=== PATIENT | female | born 1940 | race Caucasian/White ===

== ENCOUNTER 2023-08-02 18:08 | Inpatient (IN) ==
--- NOTE | 2023-08-02 18:24 | ED Triage Note ---
Date of Service August 02, 2023 Provider in Triage Author: Fern Tran History of Present Illness This patient was briefly evaluated while in triage. An abbreviated physical exam was performed. This patient is a 83-year-old Female who presents to the ED for evaluation of multiple falls over the past couple days. She states that they are all mechanical falls. Having pain and swelling to the whole right arm, right knee, neck, back, and head. Physical Exam GENERAL: Non-toxic and in no acute distress. HEENT: Pupils equal. No obvious scleral icterus. HEART: Regular rate and rhythm. LUNGS: Clear to auscultation. No accessory muscle use. CHEST: Tender to palpation along the right-sided ribs in the lower anterior aspect as well as over the lateral aspect. No fracture crepitus or flail chest. ABDOMEN: Soft, tender to palpation in the right upper quadrant. NEURO: Alert and oriented. No obvious neurological deficits on quick neuro exam. MUSCULOSKELETAL: The patient has significant bruising and edema to the entire right upper extremity. She is tender to palpation diffusely over the right upper extremity. There is also edema, ecchymosis, and tenderness to palpation over the anterior aspect of the right knee. She is tender to palpation over the cervical spine as well. Initial orders for labs and / or imaging were placed and patient was placed in the waiting area until a bed is available. Please see further documentation for the full ED course.
[2023-08-02 18:58] LABS: Basophils # (auto) 0.07 K/uL (0.00-0.20); Basophils % (auto) 0.9 %; Eosinophils # (auto) 0.08 K/uL (0.00-0.50); Eosinophils % (auto) 1.1 %; Hematocrit (blood only) 31.6 % (37.0-47.0); Hemoglobin 10.8 g/dl (12.0-16.0); Immature Granulocytes # (auto) 0.05 K/uL (0.01-0.20); Immature Granulocytes % (auto) 0.7 %; Lymphocytes # (auto) 0.83 K/uL (1.20-3.40); Mean Corpuscular Hemoglobin 30.8 pg (25.0-34.0); Mean Corpuscular Hgb Conc 34.2 g/dL (32.0-36.0); Mean Platelet Volume 10.9 fL (9.4-12.4); Monocytes # (auto) 1.02 K/uL (0.11-0.59); Monocytes % (auto) 13.5 %; Neutrophils # (auto) 5.52 K/uL (1.40-6.50); Neutrophils % (auto) 72.8 %; Platelet Count 271 K/uL (130-400); RDW Coefficient of Variation 12.9 % (11.5-14.5); RDW Standard Deviation 42.5 fL (36.4-46.3); Red Blood Count 3.51 M/uL (4.20-5.40); White Blood Count 7.57 K/ul (4.8-10.8)
[2023-08-02 19:20] LABS: Alanine Aminotransferase 12 U/L (7-52); Albumin Globulin Ratio 1.5 (0.9-2); Alkaline Phosphatase 66 U/L (34-104); Anion Gap 15 (3-11); Aspartate Aminotransferase 15 U/L (13-39); BUN Creatinine Ratio 24.4 (10-20); Bilirubin,Total 0.7 mg/dl (0.2-1.0); Blood Urea Nitrogen 20 mg/dl (6-23); Calcium 8.9 mg/dl (8.6-10.3); Carbon Dioxide 19 mmol/L (21-32); Chloride 98 mmol/L (98-107); Est GFR (African American) 75.6 ml/min; Est GFR (Non-African American) 65.3 ml/min; Globulin 2.7 gm/dl (2.5-4.0); Glucose 547 mg/dl (70-99(Fasting)); Magnesium 1.3 mg/dl (1.7-2.4); Potassium 4.2 mmol/L (3.5-5.1); Sodium 132 mmol/L (136-145); Total Protein 6.7 gm/dl (6.0-8.3)
[2023-08-02 19:23] LABS: Troponin I High Sensitivity 5.6 pg/ml (0-14)
[2023-08-02] MEDS: ACETAMINOPHEN 1,000 MG/100 ML VIAL IV STA (19:25)
[2023-08-02 19:26] LABS: Partial Thromboplastin Time 26 Seconds (21-31)
[2023-08-02] MEDS: SODIUM CHLORIDE 0.9% 500 ML IV ONE (19:26)
--- NOTE | 2023-08-02 19:47 | XRay Report ---
SINGLE VIEW CHEST CLINICAL HISTORY: Fall. FINDINGS: An AP, portable, supine chest radiograph is obtained. No prior studies are available for co mparison at the time of dictation. The examination is degraded by portable technique and apical lordo tic positioning. The patient is status post midline sternotomy. The heart is mildly enlarged noting a therosclerotic calcification of the thoracic aorta. The pulmonary vasculature is noncongested. Nonspe cific interstitial thickening is likely chronic. There is mild bibasilar scarring/atelectasis. The anneliese ngs and pleural spaces are otherwise clear. No pneumothorax is seen. The skeletal structures are oste openic. There is impacted and comminuted fracture to the right humeral head and neck. Arthritic butterfield e is seen in the shoulders. IMPRESSION: 1. Mild cardiomegaly without radiographic evidence of congestive failure. 2. There is no airspace consolidation or large pleural effusion. 3. Comminuted fracture of the right humeral head and neck.. ACT 112: Negative or not required by law. Electronically signed by: Herb Mehta M.D. 08/02/2023 7:45 PM
[2023-08-02] MEDS: OPTIRAY 320 100ml IV ONE (19:54)
--- NOTE | 2023-08-02 20:24 | CT Scan Report ---
Exam(s): CT HEAD Without Contrast EXAM: CT Head Without Intravenous Contrast CLINICAL HISTORY: Reason for exam: Trauma. TECHNIQUE: Axial computed tomography images of the head/brain without intravenous contrast. CTDI is 34.77 mGy and DLP is 624.41 mGy-cm. Automated exposure control was utilized for the study. A dose lowering technique was utilized adhering to the principles of ALARA. COMPARISON: No relevant prior studies available. FINDINGS: Brain: Mild periventricular white matter changes, likely related to micro angiopathy. No hemorrhage. Ventricles: Unremarkable. No ventriculomegaly. Bones/joints: Unremarkable. No acute fracture. Soft tissues: Unremarkable. Sinuses: Unremarkable as visualized. No acute sinusitis. Mastoid air cells: Unremarkable as visualized. No mastoid effusion. IMPRESSION: No acute findings in the head/brain. Electronically signed by: Joby Quispe M.D. 08/02/23 20:22 PM
--- NOTE | 2023-08-02 20:33 | CT Scan Report ---
Exam(s): CT C SPINE EXAM: CT Cervical Spine Without Intravenous Contrast CLINICAL HISTORY: Reason for exam: Trauma. TECHNIQUE: Axial computed tomography images of the cervical spine without intravenous contrast. CTDI is 26.19 mGy and DLP is 468.38 mGy-cm. Automated exposure control was utilized for the study. A dose lowering technique was utilized adhering to the principles of ALARA. COMPARISON: No relevant prior studies available. FINDINGS: Vertebrae: Grade 1 anterolisthesis of C2 relative to C3 and C3 relative to C4. Otherwise alignment is maintained with preservation of vertebral body heights. There are severe erosive changes at the base of the odontoid with only the anterior cortex remaining intact. No definite fracture is present. There is soft tissue swelling anterior to the base of the dens which is favored to be the cause of the erosive changes. Discs/spinal canal/neural foramina: Severe degenerative joint disease of the C4-5, C5-6, and C6-7 levels without significant bony spinal canal stenosis at any cervical level. Soft tissues: See above. IMPRESSION: No acute findings in the cervical spine. Electronically signed by: Joby Quispe M.D. 08/02/23 20:32 PM
--- NOTE | 2023-08-02 20:40 | CT Scan Report ---
Exam(s): CT CHEST With Contrast IV Amt: 93 ml optiray 320 EXAM: CT Chest With Intravenous Contrast CLINICAL HISTORY: Reason for exam: fall. TECHNIQUE: Axial computed tomography images of the chest with intravenous contrast. CTDI is 20.73 mGy and DLP is 907.8 mGy-cm. Automated exposure control was utilized for the study. A dose lowering technique was utilized adhering to the principles of ALARA. CONTRAST: Patient received 93 ml optiray 320 of IV contrast COMPARISON: No relevant prior studies available. FINDINGS: Lungs: Unremarkable. No mass. No consolidation. Pleural space: Unremarkable. No pneumothorax. No significant effusion. Heart: Unremarkable. No cardiomegaly. No significant pericardial effusion. No significant coronary artery calcifications. Bones/joints: Nondisplaced right sixth lateral rib fracture. Right humeral neck fracture. Large glenohumeral synovial fluid collection. No dislocation. Soft tissues: Unremarkable. Vasculature: Unremarkable. No thoracic aortic aneurysm. Lymph nodes: Unremarkable. No enlarged lymph nodes. IMPRESSION: 1. Nondisplaced right sixth lateral rib fracture. 2. Right humeral neck fracture. Electronically signed by: Joby Quispe M.D. 08/02/23 20:38 PM
--- NOTE | 2023-08-02 20:46 | CT Scan Report ---
Exam(s): CT ABDOMEN + PELVIS With Contrast IV Amt: 93ml optiray 320 EXAM: CT Abdomen and Pelvis With Intravenous Contrast CLINICAL HISTORY: Reason for exam: Trauma. TECHNIQUE: Axial computed tomography images of the abdomen and pelvis with intravenous contrast. CTDI is 16.37 mGy and DLP is 471.37 mGy-cm. Automated exposure control was utilized for the study. A dose lowering technique was utilized adhering to the principles of ALARA. CONTRAST: Patient received 93ml optiray 320 of IV contrast COMPARISON: No relevant prior studies available. FINDINGS: Lung bases: Unremarkable. No mass. No consolidation. ABDOMEN: Liver: Unremarkable. No mass. Gallbladder and bile ducts: See below. Pancreas: 2.6 mm calcific density in the head of the pancreas favored to be within the distal common bile duct without biliary dilatation. Spleen: Unremarkable. No splenomegaly. Adrenals: Unremarkable. No mass. Kidneys and ureters: 1.1 cm simple cyst arising off the mid left kidney. No further workup is required. No hydronephrosis. Stomach and bowel: Severe sigmoid diverticulosis without evidence of diverticulitis. No obstruction. PELVIS: Appendix: Appendix is not identified but there are no secondary signs of acute appendicitis. Bladder: Unremarkable. No mass. Reproductive: Unremarkable as visualized. ABDOMEN and PELVIS: Intraperitoneal space: Unremarkable. No free air. No significant fluid collection. Bones/joints: Severe L1 compression fracture with retropulsion is favored to be chronic. No dislocation. Soft tissues: Small periumbilical hernia. Vasculature: Unremarkable. No abdominal aortic aneurysm. Lymph nodes: Unremarkable. No enlarged lymph nodes. IMPRESSION: No acute abdominal or pelvic injury. 2.6 mm calcific density in the head of the pancreas favored to be within the distal common bile duct without biliary dilatation. Electronically signed by: Joby Quispe M.D. 08/02/23 20:45 PM
[2023-08-02] MEDS ORDERED: GLUCAGON FOR INJ 1 MG VIAL SQ PRN (20:50)
[2023-08-02] MEDS ORDERED: GLUCOSE 10 TAB/TUBE PO PRN (20:50)
[2023-08-02] MEDS ORDERED: GLUCOSE 40% GEL 15 GM TUBE PO PRN (20:50)
[2023-08-02] MEDS ORDERED: CARBOHYDRATES FOR HYPOGLYCEMIA PO PRN (20:50)
[2023-08-02] MEDS ORDERED: DEXTROSE 50% 50 ML SYRINGE IV PRN (20:50)
[2023-08-02] MEDS ORDERED: INSULIN REGULAR 250 UNITS in SODIUM CHLORIDE 0.9% 247.5 ML IV SCH (21:00)
[2023-08-02] MEDS: INSULIN ASPART PER UNIT CHARGE SC SCH (21:19)
[2023-08-02] MEDS ORDERED: PHARMACY GLYCEMIC MGMT CONSULT PRN (21:27)
[2023-08-02] MEDS ORDERED: PLASMA-LYTE A 1,000 ML IV SCH (21:30)
[2023-08-02] MEDS ORDERED: NALOXONE HCL 0.4 MG/1 ML VIAL/CARP IV PRN (21:30)
[2023-08-02 21:33] LABS: Allen Test Pos (Pos); Base Excess ABG -2.1 mEq/L (-9-1.8); HCO3 ABG 20 mmol/L (19-24); Oxygen Saturation ABG 98.5 % (90-95); PCO2 ABG 27 mmHg (35-46); PO2 ABG 129 mmHg (80-95); pH ABG 7.48 (7.35-7.45)
[2023-08-02 21:48] LABS: Albumin Level 3.7 gm/dl (3.4-5.0); Bilirubin,Total 0.7 mg/dl (0.2-1.0); Calcium 8.5 mg/dl (8.6-10.3); Magnesium 1.3 mg/dl (1.7-2.4); Potassium 3.7 mmol/L (3.5-5.1)
[2023-08-02 21:52] LABS: Appearance Urine Clear (Clear); Bilirubin Urine Negative (Negative); Blood Urine Negative (Negative); Color Urine Yellow; Glucose Urine UA 3+ (Negative); Ketones Urine Trace (Negative); Leukocyte Esterase Urine Negative (Negative); Nitrite Urine Negative (Negative); Protein Urine Negative (Negative); Specific Gravity Urine 1.034 (1.000-1.030); Urobilinogen Urine Negative (Negative); pH Urine 5.5 (4.5-7.5)
--- NOTE | 2023-08-02 21:52 | History & Physical Report ---
Date of Service August 02, 2023 Assessment & Plan (1) Fracture of humerus, right, closed: (2) Closed rib fracture: (3) DKA (diabetic ketoacidosis): (4) Uncontrolled type 2 diabetes mellitus with hyperglycemia: (5) CAD (coronary artery disease): (6) S/P CABG x 3: (7) Idiopathic polyneuropathy: (8) Diabetes mellitus type 2, controlled, with complications: (9) Essential hypertension with goal blood pressure less than 130/80: Plan Closed right humeral neck fracture- Status post mechanical fall N.p.o. after midnight Consult orthopedic surgery Pain management with Tylenol and morphine IV as needed DKA/diabetes mellitus- Insulin drip per protocol begun in the ED and will be continued Every 4 hours laboratories: BMP, magnesium, venous blood gas LR 150 MLS per hour Oral potassium to be supplemented, due to poor IV access and concerns regarding trauma to the veins Hold repaglinide Check hemoglobin A1c Will hopefully alleviate to convert to usual glargine CAD/hypertensionhistory of CABG- Continue amlodipine, atenolol, isosorbide mononitrate Temporarily hold aspirin for possible procedure Follow routine laboratories History of Present Illness Chief Complaint: The patient is brought to the emergency department after a ground-level fall, where she reports she was on some steps 2 days ago fell and landed on her right side, and developed worsening right arm and shoulder pain and swelling. Primary Care Provider: Luther Funk, III, PREETHI The patient is a 83-year-old female with medical history including diabetes dewayne itus type II dyslipidemia, CAD, bilateral carotid artery stenosis, status post CABG x 3, idiopathic polyneuropathy hypertension and moderate mitral regurgitation. She presents to the emergency department with worsening right shoulder and arm pain and swelling, after landing on her right side after a fall on steps 2 days ago. X-rays in the emergency department revealed a right humeral neck fracture, a right sixth lateral rib fracture, and laboratory workup revealed DKA with a glucose of 547 and anion gap of 15 Allergies Allergy/AdvReac Type Severity Reaction Status Date / Time canagliflozin [From Invokana] AdvReac Severe Vaginal Unverified 07/11/23 14:45 fungal infection alendronate sodium AdvReac Unknown Night time Unverified 07/11/23 14:45 [From Fosamax] muscle cramps epinephrine AdvReac Unknown Unverified 07/11/23 14:45 exenatide AdvReac Unknown Unverified 07/11/23 14:45 insulin detemir AdvReac Unknown Unverified 07/11/23 14:45 latex AdvReac Unknown Edema Unverified 07/11/23 14:45 rosuvastatin [From Crestor] AdvReac Unknown Muscle pain Unverified 07/11/23 14:45 silicone AdvReac Unknown Unverified 07/11/23 14:45 sitagliptin [From Januvia] AdvReac Unknown Muscle pain Unverified 07/11/23 14:45 Sulfa (Sulfonamide AdvReac Unknown Hives Unverified 07/11/23 14:45 Antibiotics) vecuronium AdvReac Unknown Unverified 07/11/23 14:45 Home Medications Medication Instructions Recorded Confirmed Type atenolol 25 mg tablet 25 mg PO DAILY 04/15/21 08/02/23 History isosorbide mononitrate 30 mg 30 mg PO DAILY 04/15/21 08/02/23 History tablet,extended release 24 hr metformin 1,000 mg tablet 1,000 mg PO BID 04/15/21 08/02/23 History lancets 33 gauge (OneTouch Delica #100 ea 10/06/21 08/02/23 History Plus Lancet) atorvastatin 40 mg tablet 40 mg PO DAILY #90 tabs 02/15/22 08/02/23 Rx blood sugar diagnostic (OneTouch #10 ea 04/08/22 08/02/23 History Verio test strips) cyclosporine 0.05 % eye drops in a 1 drp ophthalmic (eye) Q12H PRN 04/08/22 08/02/23 History dropperette (Restasis) Dry Eyes mheqrzsa-qsucmnt-nbxw-lutein tablet 1 tab PO DAILY 04/08/22 08/02/23 History pen needle, diabetic 31 gauge x #100 ea 09/28/22 08/02/23 Rx 5/16" (BD Ultra-Fine Short Pen Needle) aspirin 81 mg tablet,delayed 162 mg PO DAILY 12/29/22 08/02/23 History release nitroglycerin 0.4 mg sublingual 0.4 mg sublingual Q5M PRN chest 12/29/22 08/02/23 Rx tablet pain #25 tabs OneTouch Verio Flex meter #1 ea 05/19/23 08/02/23 Rx (blood-glucose meter) duloxetine 30 mg capsule,delayed 30 mg PO DAILY #90 caps 07/24/23 08/02/23 Rx release amlodipine 5 mg tablet 5 mg PO DAILY 08/02/23 08/02/23 History aspirin 81 mg tablet,delayed 81 mg PO DAILY 08/02/23 08/02/23 History release insulin glargine 100 unit/mL (3 12 unit subcut QPM 08/02/23 08/02/23 History mL) subcutaneous pen (Lantus Solostar U-100 Insulin) oxybutynin chloride 5 mg tablet 5 mg PO Q OTHER DAY 08/02/23 08/02/23 History repaglinide 1 mg tablet 1 mg PO DAILY PRN ud 08/02/23 08/02/23 History Past Med/Surg History Problem List (Updated 08/03/23 @ 01:49 by Johnny Mackenzie MD) Fracture of humerus, right, closed Closed rib fracture (Acute) Fracture, humerus (Acute) DKA (diabetic ketoacidosis) (Acute) Moderate mitral regurgitation Uncontrolled type 2 diabetes mellitus with hyperglycemia (Chronic) Osteoporosis Dyslipidemia, goal LDL below 70 CAD (coronary artery disease) Bilateral carotid artery stenosis S/P CABG x 3 Idiopathic polyneuropathy Mammogram declined Diabetes mellitus type 2, controlled, with complications Essential hypertension with goal blood pressure less than 130/80 Medical History Thrombocytosis Type 2 diabetes mellitus with diabetic neuropathy, without long-term current use of insulin 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 Spinal stenosis of lumbar region Hypothyroidism Primary osteoarthritis of left hip DJD (degenerative joint disease) of thoracic spine CAROL (obstructive sleep apnea) Insomnia HTN, goal below 150/90 Age-related osteoporosis without current pathological fracture Osteoarthritis of hip Surgical History S/P hip replacement Right S/P tonsillectomy and adenoidectomy S/P appendectomy S/P colonoscopy Status post left hip replacement Family History Sister Cancer Ovarian cancer Mother Neurological disorder Denies family history of Prostate cancer Myocardial infarction Breast cancer Colorectal cancer Social History Smoking Status: Former smoker Tobacco Type: Cigarettes Age Started Using Tobacco: 24; Age Quit Using Tobacco: 63; packs per day: 0.33; Second Hand Exposure: No; Do You Dip or Chew Tobacco: No; Tobacco Cessation Education Requested by Patient: No Hx Alcohol Use: Yes Alcohol type: wine and hard liquor Alcohol Intake Frequency: 4 or More x per/Week Alcohol Intake Frequency Comment: wine at lunch and dinner time, Cogn[place] in coffee in mornings Hx Substance Use: No Preferred Language: Ivorian Communication Ability: Effective Visual Impairment: Limited Hearing Ability: Normal Security Operations Specialist Required: No Beliefs That Will Affect Care: None marital status: Current Living Situation: Spouse current occupational status: retired How many Children do You have: 5 Other Information That Helps Us Care for You: No Feels Safe at Home: Yes Safety Concerns: Feels Safe At This Time Childhood Exposure to Second-Hand Smoke: No Diet: other Diet Comment: Mediterranean caffeine: Yes during the past year weight has: remained stable Dental Care, Regularly: Yes Physical Activity Frequency: Daily Seatbelt Use: always Sunscreen Use: Yes Assistive Devices: Denture - Upper and Denture - Lower Review of Systems Review of Systems: The patient denies chest pain, palpitations, shortness of breath, dyspnea on exertion, cough, lower extremity swelling, sore throat, fevers, chills, sweats, weight change, fatigue, nausea, vomiting, diarrhea , constipation, abdominal pain, pelvic pain, blood in urine or stool, dysuria, urinary frequency or urgency, lightheadedness, dizziness, headache, memory loss, loss of consciousness, imbalance, focal or generalized weakness, numbness or tingling in legs, generalized arthralgias or myalgias, back or neck pain, or night sweats. The review of systems is otherwise negative other than for that already noted above, and at least 10 systems have been reviewed. Physical Exam Physical Exam: The patient is awake, alert and oriented 3, well developed and well nourished, normocephalic and atraumatic, lying in bed and in no acute distress. HEENT--PERRL, EOMI, mucous membranes and oropharynx dry. Neck--supple. No JVD. No bruits. Thyroid normal, trachea midline, no adenopathy. Heart--normal S1 and S2. No murmurs, rubs or gallops. Lungs--clear bilaterally, no respiratory distress, no accessory muscle use. Abdomen--normal bowel sounds and soft. Nontender. Nondistended, no hernias or masses, no organomegaly. Extremities-- No edema. Dermatologic-large areas of ecchymoses right arm and shoulder, and right sided rib cage. Neurologic--cranial nerves II through XII grossly intact. Rheumatologic--limited exam due to right shoulder, arm and rib cage pain Psychiatric--normal affect. Results & Data Results & Data Vital Signs (Past 12 Hours) Vital Signs Temp Pulse Pulse Resp BP BP Pulse Ox 08/02/23 19:44 70 24 185/86 H 100 08/02/23 19:42 70 24 100 08/02/23 19:24 69 08/02/23 18:15 36.8 C 90 28 H 199/81 H 97 O2 Del Method 08/02/23 19:44 Room Air 08/02/23 19:42 Room Air 08/02/23 19:24 08/02/23 18:15 Room Air Laboratory Results Laboratory Results WBC 6.89 K/ul (4.8-10.8) 08/02/23 21:13 RBC 3.46 M/uL (4.20-5.40) L 08/02/23 21:13 Hgb 10.6 g/dl (12.0-16.0) L 08/02/23 21:13 Hct 30.5 % (37.0-47.0) L 08/02/23 21:13 MCV 88.2 fL (80.0-100.0) 08/02/23 21:13 MCH 30.6 pg (25.0-34.0) 08/02/23 21:13 MCHC 34.8 g/dL (32.0-36.0) 08/02/23 21:13 RDW Std Deviation 40.9 fL (36.4-46.3) 08/02/23 21:13 RDW Coeff of Emery 12.7 % (11.5-14.5) 08/02/23 21:13 Plt Count 249 K/uL (130-400) 08/02/23 21:13 MPV 11.2 fL (9.4-12.4) 08/02/23 21:13 Immature Gran % (Auto) 0.7 % 08/02/23 21:13 Neut % (Auto) 74.3 % 08/02/23 21:13 Lymph % (Auto) 10.3 % 08/02/23 21:13 [place] % (Auto) 12.9 % 08/02/23 21:13 Eos % (Auto) 0.6 % 08/02/23 21:13 Baso % (Auto) 1.2 % 08/02/23 21:13 Neut # (Auto) 5.12 K/uL (1.40-6.50) 08/02/23 21:13 Lymph # (Auto) 0.71 K/uL (1.20-3.40) L 08/02/23 21:13 [place] # (Auto) 0.89 K/uL (0.11-0.59) H 08/02/23 21:13 Eos # (Auto) 0.04 K/uL (0.00-0.50) 08/02/23 21:13 Baso # (Auto) 0.08 K/uL (0.00-0.20) 08/02/23 21:13 Immature Gran # (Auto) 0.05 K/uL (0.01-0.20) 08/02/23 21:13 PT 11.0 Seconds (9.0-12.0) 08/02/23 18:31 INR 1.0 (0.9-1.1) 08/02/23 18:31 APTT 26 Seconds (21-31) 08/02/23 18:31 PTT Ratio 1.0 08/02/23 18:31 ABG pH 7.48 (7.35-7.45) H 08/02/23 21:13 ABG pCO2 27 mmHg (35-46) L 08/02/23 21:13 ABG pO2 129 mmHg (80-95) H 08/02/23 21:13 ABG HCO3 20 mmol/L (19-24) 08/02/23 21:13 ABG O2 Saturation 98.5 % (90-95) H 08/02/23 21:13 ABG Base Excess -2.1 mEq/L (-9-1.8) 08/02/23 21:13 Anders Test Pos (Pos) 08/02/23 21:13 Oxygen Given 2L 08/02/23 21:13 Sodium 133 mmol/L (136-145) L 08/02/23 21:13 Potassium 3.7 mmol/L (3.5-5.1) 08/02/23 21:13 Chloride 100 mmol/L (98-107) 08/02/23 21:13 Carbon Dioxide 20 mmol/L (21-32) L 08/02/23 21:13 Anion Gap 13 (3-11) H 08/02/23 21:13 BUN 18 mg/dl (6-23) 08/02/23 21:13 Creatinine 0.70 mg/dl (0.6-1.2) 08/02/23 21:13 Est Cr Clr Drug Dosing 45.5 ml/min 08/02/23 21:13 Est GFR ( Amer) 91.6 ml/min 08/02/23 21:13 Est GFR (Non-Af Amer) 79.0 ml/min 08/02/23 21:13 BUN/Creatinine Ratio 25.7 (10-20) H 08/02/23 21:13 Glucose 401 mg/dl (70-99(Fasting)) H* 08/02/23 21:13 POC Glucose 168 mg/dl (70-99) H 08/03/23 01:41 Estimat Average Glucose 186 mg/dl 08/02/23 21:13 Hemoglobin A1c 8.1 % (4.5-5.6) H 08/02/23 21:13 Lactate 4.5 mmol/L (0.4-2.0) H* 08/03/23 01:20 Calcium 8.5 mg/dl (8.6-10.3) L 08/02/23 21:13 Phosphorus 2.7 mg/dl (2.5-4.9) 08/02/23 21:13 Magnesium 1.3 mg/dl (1.7-2.4) L 08/02/23 21:13 Total Bilirubin 0.7 mg/dl (0.2-1.0) 08/02/23 21:13 AST 13 U/L (13-39) 08/02/23 21:13 ALT 13 U/L (7-52) 08/02/23 21:13 Alkaline Phosphatase 62 U/L (34-104) 08/02/23 21:13 Troponin I High Sens 5.6 pg/ml (0-14) 08/02/23 18:31 Total Protein 6.2 gm/dl (6.0-8.3) 08/02/23 21:13 Albumin 3.7 gm/dl (3.4-5.0) 08/02/23 21:13 Globulin 2.5 gm/dl (2.5-4.0) 08/02/23 21:13 Albumin/Globulin Ratio 1.5 (0.9-2) 08/02/23 21:13 Urine Color Yellow 08/02/23 21:37 Urine Appearance Clear (Clear) 08/02/23 21:37 Urine pH 5.5 (4.5-7.5) 08/02/23 21:37 Ur Specific [place] 1.034 (1.000-1.030) H 08/02/23 21:37 Urine Protein Negative (Negative) 08/02/23 21:37 Urine Glucose (UA) 3+ (Negative) H 08/02/23 21:37 Urine Ketones Trace (Negative) H 08/02/23 21:37 Urine Blood Negative (Negative) 08/02/23 21:37 Urine Nitrite Negative (Negative) 08/02/23 21:37 Urine Bilirubin Negative (Negative) 08/02/23 21:37 Urine Urobilinogen Negative (Negative) 08/02/23 21:37 Ur Leukocyte Esterase Negative (Negative) 08/02/23 21:37 Impressions Abdomen/Pelvis CT 08/02/23 18:27 Exam(s): CT ABDOMEN + PELVIS With Contrast IV Amt: 93ml optiray 320 EXAM: CT Abdomen and Pelvis With Intravenous Contrast CLINICAL HISTORY: Reason for exam: Trauma. TECHNIQUE: Axial computed tomography images of the abdomen and pelvis with intravenous contrast. CTDI is 16.37 mGy and DLP is 471.37 mGy-cm. Automated exposure control was utilized for the study. A dose lowering technique was utilized adhering to the principles of ALARA. CONTRAST: Patient received 93ml optiray 320 of IV contrast COMPARISON: No relevant prior studies available. FINDINGS: Lung bases: Unremarkable. No mass. No consolidation. ABDOMEN: Liver: Unremarkable. No mass. Gallbladder and bile ducts: See below. Pancreas: 2.6 mm calcific density in the head of the pancreas favored to be within the distal common bile duct without biliary dilatation. Spleen: Unremarkable. No splenomegaly. Adrenals: Unremarkable. No mass. Kidneys and ureters: 1.1 cm simple cyst arising off the mid left kidney. No further workup is required. No hydronephrosis. Stomach and bowel: Severe sigmoid diverticulosis without evidence of diverticulitis. No obstruction. PELVIS: Appendix: Appendix is not identified but there are no secondary signs of acute appendicitis. Bladder: Unremarkable. No mass. Reproductive: Unremarkable as visualized. ABDOMEN and PELVIS: Intraperitoneal space: Unremarkable. No free air. No significant fluid collection. Bones/joints: Severe L1 compression fracture with retropulsion is favored to be chronic. No dislocation. Soft tissues: Small periumbilical hernia. Vasculature: Unremarkable. No abdominal aortic aneurysm. Lymph nodes: Unremarkable. No enlarged lymph nodes. IMPRESSION: No acute abdominal or pelvic injury. 2.6 mm calcific density in the head of the pancreas favored to be within the distal common bile duct without biliary dilatation. Electronically signed by: Joby Quispe M.D. 08/02/23 20:[address] 08/02/23 18:27 Exam(s): CT C SPINE EXAM: CT Cervical Spine Without Intravenous Contrast CLINICAL HISTORY: Reason for exam: Trauma. TECHNIQUE: Axial computed tomography images of the cervical spine without intravenous contrast. CTDI is 26.19 mGy and DLP is 468.38 mGy-cm. Automated exposure control was utilized for the study. A dose lowering technique was utilized adhering to the principles of ALARA. COMPARISON: No relevant prior studies available. FINDINGS: Vertebrae: Grade 1 anterolisthesis of C2 relative to C3 and C3 relative to C4. Otherwise alignment is maintained with preservation of vertebral body heights. There are severe erosive changes at the base of the odontoid with only the anterior cortex remaining intact. No definite fracture is present. There is soft tissue swelling anterior to the base of the dens which is favored to be the cause of the erosive changes. Discs/spinal canal/neural foramina: Severe degenerative joint disease of the C4-5, C5-6, and C6-7 levels without significant bony spinal canal stenosis at any cervical level. Soft tissues: See above. IMPRESSION: No acute findings in the cervical spine. Electronically signed by: Joby Quispe M.D. 08/02/23 20:[address] 08/02/23 18:27 Exam(s): CT HEAD Without Contrast EXAM: CT Head Without Intravenous Contrast CLINICAL HISTORY: Reason for exam: Trauma. TECHNIQUE: Axial computed tomography images of the head/brain without intravenous contrast. CTDI is 34.77 mGy and DLP is 624.41 mGy-cm. Automated exposure control was utilized for the study. A dose lowering technique was utilized adhering to the principles of ALARA. COMPARISON: No relevant prior studies available. FINDINGS: Brain: Mild periventricular white matter changes, likely related to micro angiopathy. No hemorrhage. Ventricles: Unremarkable. No ventriculomegaly. Bones/joints: Unremarkable. No acute fracture. Soft tissues: Unremarkable. Sinuses: Unremarkable as visualized. No acute sinusitis. Mastoid air cells: Unremarkable as visualized. No mastoid effusion. IMPRESSION: No acute findings in the head/brain. Electronically signed by: Joby Quispe M.D. 08/02/23 20:22 PM Chest X-Ray 08/02/23 19:10 SINGLE VIEW CHEST CLINICAL HISTORY: Fall. FINDINGS: An AP, portable, supine chest radiograph is obtained. No prior studies are available for comparison at the time of dictation. The examination is degraded by portable technique and apical lordotic positioning. The patient is status post midline sternotomy. The heart is mildly enlarged noting atherosclerotic calcification of the thoracic aorta. The pulmonary vasculature is noncongested. Nonspecific interstitial thickening is likely chronic. There is mild bibasilar scarring/atelectasis. The lungs and pleural spaces are otherwise clear. No pneumothorax is seen. The skeletal structures are osteopenic. There is impacted and comminuted fracture to the right humeral head and neck. Arthritic change is seen in the shoulders. IMPRESSION: 1. Mild cardiomegaly without radiographic evidence of congestive failure. 2. There is no airspace consolidation or large pleural effusion. 3. Comminuted fracture of the right humeral head and neck.. ACT 112: Negative or not required by law. Electronically signed by: Herb Mehta M.D. 08/02/2023 7:[address] 08/02/23 19:21 Exam(s): CT CHEST With Contrast IV Amt: 93 ml optiray 320 EXAM: CT Chest With Intravenous Contrast CLINICAL HISTORY: Reason for exam: fall. TECHNIQUE: Axial computed tomography images of the chest with intravenous contrast. CTDI is 20.73 mGy and DLP is 907.8 mGy-cm. Automated exposure control was utilized for the study. A dose lowering technique was utilized adhering to the principles of ALARA. CONTRAST: Patient received 93 ml optiray 320 of IV contrast COMPARISON: No relevant prior studies available. FINDINGS: Lungs: Unremarkable. No mass. No consolidation. Pleural space: Unremarkable. No pneumothorax. No significant effusion. Heart: Unremarkable. No cardiomegaly. No significant pericardial effusion. No significant coronary artery calcifications. Bones/joints: Nondisplaced right sixth lateral rib fracture. Right humeral neck fracture. Large glenohumeral synovial fluid collection. No dislocation. Soft tissues: Unremarkable. Vasculature: Unremarkable. No thoracic aortic aneurysm. Lymph nodes: Unremarkable. No enlarged lymph nodes. IMPRESSION: 1. Nondisplaced right sixth lateral rib fracture. 2. Right humeral neck fracture. Electronically signed by: Joby Quispe M.D. 08/02/23 20:[address] 08/02/23 20:54 Exam(s): CT RIGHT SHOULDER Without Contrast EXAM: CT Right Upper Extremity Without Intravenous Contrast, Shoulder CLINICAL HISTORY: Reason for exam: fx. TECHNIQUE: Axial computed tomography images of the right shoulder without intravenous contrast. CTDI is 19.67 mGy and DLP is 480.68 mGy-cm. Automated exposure control was utilized for the study. A dose lowering technique was utilized adhering to the principles of ALARA. COMPARISON: No relevant prior studies available. FINDINGS: Bones/joints: Comminuted right humeral neck fracture with early callus formation and is likely subacute. Severe degenerative joint disease of the right glenohumeral joint. Large joint effusion of the glenohumeral joint extending into the axilla. No dislocation. Soft tissues: Unremarkable. Other findings: . IMPRESSION: Comminuted right humeral neck fracture with early callus formation and is likely subacute. Electronically signed by: Joby Quispe M.D. 08/02/23 23:24 PM Code Status & VTE Plan Code Status Full code VTE Prophylaxis Plan VTE Prophylaxis will be ordered: Yes PG Care Time/CCT Total # of Minutes Spent Total Time Spent with Patient: Total time spent is greater than 50% in coordination of care (as documented) at patient's floor/unit and/or counseling patient: Coding Level of Care Code 39401 INT INP/OBS CARE 3/75MIN Diagnoses Fracture of humerus, right, closed S42.301A Closed rib fracture S22.31XA Encounter type: initial encounter Laterality: right Rib fracture type: single rib DKA (diabetic ketoacidosis) E13.10 Diabetes mellitus complication detail: without coma Diabetes mellitus type: other specified (including RICHAR) Uncontrolled type 2 diabetes mellitus with hyperglycemia E11.65 CAD (coronary artery disease) I25.10 S/P CABG x 3 Z95.1 Idiopathic polyneuropathy G60.9 Controlled type 2 diabetes mellitus with complication, with long-term current use of insulin E11.8; Z79.4 Diabetes mellitus fpc insulin use: with fpc use Essential hypertension with goal blood pressure less than 130/80 I10 (2) Closed rib fracture Encounter type: initial encounter Laterality: right Rib fracture type: single rib Qualified Code(s): S22.31XA - Fracture of one rib, right side, initial encounter for closed fracture (3) DKA (diabetic ketoacidosis) Diabetes mellitus complication detail: without coma Diabetes mellitus type: other specified (including RICHAR) Qualified Code(s): E13.10 - Other specified diabetes mellitus with ketoacidosis without coma (8) Diabetes mellitus type 2, controlled, with complications Diabetes mellitus rat exterminator insulin use: with rat exterminator use Qualified Code(s): E11.8 - Type 2 diabetes mellitus with unspecified complications; Z79.4 - intermodal customer service (current) use of insulin
[2023-08-02] MEDS: MAGNESIUM SULFATE / D5W 1 GM/100 ML BAG IV SCH (21:54)
[2023-08-02 22:00] LABS: Estimated Average Glucose 186 mg/dl; Hemoglobin A1C 8.1 % (4.5-5.6)
[2023-08-02] MEDS ORDERED: PENDING 1/2NSS+20mEq KCL IVF SCH (22:00)
[2023-08-02] MEDS ORDERED: PENDING D5 1/2NS+20mEq KCL IVF SCH (22:00)
[2023-08-02 22:04] LABS: Basophils # (auto) 0.08 K/uL (0.00-0.20); Basophils % (auto) 1.2 %; Eosinophils # (auto) 0.04 K/uL (0.00-0.50); Eosinophils % (auto) 0.6 %; Hematocrit (blood only) 30.5 % (37.0-47.0); Hemoglobin 10.6 g/dl (12.0-16.0); Immature Granulocytes # (auto) 0.05 K/uL (0.01-0.20); Immature Granulocytes % (auto) 0.7 %; Lymphocytes # (auto) 0.71 K/uL (1.20-3.40); Lymphocytes % (auto) 10.3 %; Mean Corpuscular Hemoglobin 30.6 pg (25.0-34.0); Mean Corpuscular Hgb Conc 34.8 g/dL (32.0-36.0); Mean Corpuscular Volume 88.2 fL (80.0-100.0); Mean Platelet Volume 11.2 fL (9.4-12.4); Monocytes # (auto) 0.89 K/uL (0.11-0.59); Monocytes % (auto) 12.9 %; Neutrophils # (auto) 5.12 K/uL (1.40-6.50); Neutrophils % (auto) 74.3 %; Platelet Count 249 K/uL (130-400); RDW Coefficient of Variation 12.7 % (11.5-14.5); RDW Standard Deviation 40.9 fL (36.4-46.3); Red Blood Count 3.46 M/uL (4.20-5.40); White Blood Count 6.89 K/ul (4.8-10.8)
[2023-08-02 22:16] LABS: Albumin Globulin Ratio 1.5 (0.9-2); BUN Creatinine Ratio 25.7 (10-20); Creatinine Clr Calc Pharmacy 45.5 ml/min; Est GFR (African American) 91.6 ml/min; Globulin 2.5 gm/dl (2.5-4.0); Phosphorus 2.7 mg/dl (2.5-4.9); Total Protein 6.2 gm/dl (6.0-8.3)
[2023-08-02] MEDS: MoRPHine SULFATE 2 MG/ML CARP IV PRN (22:17)
[2023-08-02] MEDS: POTASSIUM CHLORIDE CRTAB 20 MEQ TABCR PO STA (22:17)
[2023-08-02] MEDS: MAGNESIUM OXIDE 400 MG TAB PO STA (22:17)
[2023-08-02] MEDS: MoRPHine SULFATE 2 MG/ML CARP IV STA (22:27)
[2023-08-02] MEDS: POTASSIUM CHLORIDE 20 MEQ in PLASMA-LYTE A 1,000 ML IV SCH (22:39)
[2023-08-02] MEDS: INSULIN REGULAR 250 UNITS in SODIUM CHLORIDE 0.9% 247.5 ML IV SCH (22:55)
--- NOTE | 2023-08-02 23:25 | CT Scan Report ---
Exam(s): CT RIGHT SHOULDER Without Contrast EXAM: CT Right Upper Extremity Without Intravenous Contrast, Shoulder CLINICAL HISTORY: Reason for exam: fx. TECHNIQUE: Axial computed tomography images of the right shoulder without intravenous contrast. CTDI is 19.67 mGy and DLP is 480.68 mGy-cm. Automated exposure control was utilized for the study. A dose lowering technique was utilized adhering to the principles of ALARA. COMPARISON: No relevant prior studies available. FINDINGS: Bones/joints: Comminuted right humeral neck fracture with early callus formation and is likely subacute. Severe degenerative joint disease of the right glenohumeral joint. Large joint effusion of the glenohumeral joint extending into the axilla. No dislocation. Soft tissues: Unremarkable. Other findings: . IMPRESSION: Comminuted right humeral neck fracture with early callus formation and is likely subacute. Electronically signed by: Joby Quispe M.D. 08/02/23 23:24 PM
[2023-08-03] MEDS: MAGNESIUM SULFATE / D5W 1 GM/100 ML BAG IV SCH (00:05)
[2023-08-03] MEDS: ACETAMINOPHEN 325 MG TAB PO SCH ×2 (00:07→18:32)
[2023-08-03] MEDS: D5W AND 1/2NSS + 20MEQ KCL 20 MEQ/1,000 ML BAG IV SCH (00:56)
[2023-08-03] MEDS: SODIUM CHLORIDE 0.9% 1,000 ML IV ONE (00:58)
--- NOTE | 2023-08-03 01:21 | Emergency Department Note ---
History of Present Illness General Chief complaint: Fall Stated complaint: FELL, HIT WHOLE BODY Time Seen by Provider: 08/02/23 19:07 History of Present Illness Provider complaint: Fall Onset (ago): day(s) 2 Maximum Pain Intensity: 7 83-year-old female presents emergency department with family for fall. Family reports that the patient fell on some steps 2 days ago and landed on her right side. They report since then she has been having pain in her right arm and swelling in her right arm. No blood thinners. Patient reports pain in her right chest as well. Home Medications Medication Instructions Recorded Confirmed Type atenolol 25 mg tablet 25 mg PO DAILY 04/15/21 08/02/23 History isosorbide mononitrate 30 mg 30 mg PO DAILY 04/15/21 08/02/23 History tablet,extended release 24 hr metformin 1,000 mg tablet 1,000 mg PO BID 04/15/21 08/02/23 History lancets 33 gauge (OneTouch Delica #100 ea 10/06/21 08/02/23 History Plus Lancet) atorvastatin 40 mg tablet 40 mg PO DAILY #90 tabs 02/15/22 08/02/23 Rx blood sugar diagnostic (OneTouch #10 ea 04/08/22 08/02/23 History Verio test strips) cyclosporine 0.05 % eye drops in a 1 drp ophthalmic (eye) Q12H PRN 04/08/22 08/02/23 History dropperette (Restasis) Dry Eyes biaxfprr-vntieyr-hxfa-lutein tablet 1 tab PO DAILY 04/08/22 08/02/23 History pen needle, diabetic 31 gauge x #100 ea 09/28/22 08/02/23 Rx 5/16" (BD Ultra-Fine Short Pen Needle) aspirin 81 mg tablet,delayed 162 mg PO DAILY 12/29/22 08/02/23 History release nitroglycerin 0.4 mg sublingual 0.4 mg sublingual Q5M PRN chest 12/29/22 08/02/23 Rx tablet pain #25 tabs OneTouch Verio Flex meter #1 ea 05/19/23 08/02/23 Rx (blood-glucose meter) duloxetine 30 mg capsule,delayed 30 mg PO DAILY #90 caps 07/24/23 08/02/23 Rx release amlodipine 5 mg tablet 5 mg PO DAILY 08/02/23 08/02/23 History aspirin 81 mg tablet,delayed 81 mg PO DAILY 08/02/23 08/02/23 History release insulin glargine 100 unit/mL (3 12 unit subcut QPM 08/02/23 08/02/23 History mL) subcutaneous pen (Lantus Solostar U-100 Insulin) oxybutynin chloride 5 mg tablet 5 mg PO Q OTHER DAY 08/02/23 08/02/23 History repaglinide 1 mg tablet 1 mg PO DAILY PRN ud 08/02/23 08/02/23 History Allergies Allergy/AdvReac Type Severity Reaction Status Date / Time canagliflozin [From Invokana] AdvReac Severe Vaginal Unverified 07/11/23 14:45 fungal infection alendronate sodium AdvReac Unknown Night time Unverified 07/11/23 14:45 [From Fosamax] muscle cramps epinephrine AdvReac Unknown Unverified 07/11/23 14:45 exenatide AdvReac Unknown Unverified 07/11/23 14:45 insulin detemir AdvReac Unknown Unverified 07/11/23 14:45 latex AdvReac Unknown Edema Unverified 07/11/23 14:45 rosuvastatin [From Crestor] AdvReac Unknown Muscle pain Unverified 07/11/23 14:45 silicone AdvReac Unknown Unverified 07/11/23 14:45 sitagliptin [From Januvia] AdvReac Unknown Muscle pain Unverified 07/11/23 14:45 Sulfa (Sulfonamide AdvReac Unknown Hives Unverified 07/11/23 14:45 Antibiotics) vecuronium AdvReac Unknown Unverified 07/11/23 14:45 Past Med/Surg History Problem List (Updated 08/03/23 @ 01:21 by Law Og MD) Closed rib fracture (Acute) Fracture, humerus (Acute) DKA (diabetic ketoacidosis) (Acute) Moderate mitral regurgitation Uncontrolled type 2 diabetes mellitus with hyperglycemia (Chronic) Osteoporosis Dyslipidemia, goal LDL below 70 CAD (coronary artery disease) Bilateral carotid artery stenosis S/P CABG x 3 Idiopathic polyneuropathy Mammogram declined Diabetes mellitus type 2, controlled, with complications Essential hypertension with goal blood pressure less than 130/80 Medical History Thrombocytosis Type 2 diabetes mellitus with diabetic neuropathy, without long-term current use of insulin 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 Spinal stenosis of lumbar region Hypothyroidism Primary osteoarthritis of left hip DJD (degenerative joint disease) of thoracic spine CAROL (obstructive sleep apnea) Insomnia HTN, goal below 150/90 Age-related osteoporosis without current pathological fracture Osteoarthritis of hip Surgical History S/P hip replacement Right S/P tonsillectomy and adenoidectomy S/P appendectomy S/P colonoscopy Status post left hip replacement Family History Sister Cancer Ovarian cancer Mother Neurological disorder Denies family history of Prostate cancer Myocardial infarction Breast cancer Colorectal cancer Social History Smoking Status: Former smoker Tobacco Type: Cigarettes Age Started Using Tobacco: 24; Age Quit Using Tobacco: 63; packs per day: 0.33; Second Hand Exposure: No; Do You Dip or Chew Tobacco: No; Tobacco Cessation Education Requested by Patient: No Hx Alcohol Use: Yes Alcohol type: wine and hard liquor Alcohol Intake Frequency: 4 or More x per/Week Alcohol Intake Frequency Comment: wine at lunch and dinner time, [place]ogn[place] in coffee in mornings Hx Substance Use: No Preferred Language: Brazilian Communication Ability: Effective Visual Impairment: Limited Hearing Ability: Normal Director Family Required: No Beliefs That Will Affect Care: None marital status: Current Living Situation: Spouse current occupational status: retired How many Children do You have: 5 Other Information That Helps Us Care for You: No Feels Safe at Home: Yes Safety Concerns: Feels Safe At This Time Childhood Exposure to Second-Hand Smoke: No Diet: other Diet Comment: Mediterranean caffeine: Yes during the past year weight has: remained stable Dental Care, Regularly: Yes Physical Activity Frequency: Daily Seatbelt Use: always Sunscreen Use: Yes Assistive Devices: Denture - Upper and Denture - Lower Physical Exam Vital Signs Vital Signs - 24 hr 08/02/23 18:15 08/02/23 19:24 08/02/23 19:42 Temperature 36.8 C Temperature Source Temporal Artery Scan Pulse Rate 90 69 70 Pulse Rate [Left Finger] Respiratory Rate 28 H 24 Respiratory Pattern Tachypnea Blood Pressure 199/81 H Blood Pressure [Left Arm] Blood Pressure Mean 120 Blood Pressure Mean [Left Arm] Blood Pressure Position [Left Arm] Pulse Oximetry 97 100 Oxygen Delivery Method Room Air Room Air Sepsis Recent Fever Within 48 Hours No Sepsis New/Unexplained Change in Mental Status No Sepsis Action Taken by Nursing No Action Required 08/02/23 19:44 Temperature Temperature Source Pulse Rate Pulse Rate [Left Finger] 70 Respiratory Rate 24 Respiratory Pattern Blood Pressure Blood Pressure [Left Arm] 185/86 H Blood Pressure Mean Blood Pressure Mean [Left Arm] 119 Blood Pressure Position [Left Arm] Lying Pulse Oximetry 100 Oxygen Delivery Method Room Air Sepsis Recent Fever Within 48 Hours Sepsis New/Unexplained Change in Mental Status Sepsis Action Taken by Nursing Physical Exam HENT: Exam performed. -Head: Normocephalic and atraumatic. -Right Ear: External ear normal. No mastoid erythema -Left Ear: External ear normal. No mastoid erythema -Mouth/Throat: The oropharynx is clear and moist. No trismus in the jaw. No dental abscesses or uvula swelling. No oropharyngeal exudate or tonsillar abscesses. EYES: Conjunctivae and EOM are normal. Pupils are equal, round, and reactive to light. Right eye exhibits no discharge. Left eye exhibits no discharge. No scleral icterus. NECK: Patient in c-collar CV: Normal rate, regular rhythm, normal heart sounds and intact distal pulses. There is no peripheral edema. Palpable radial pulses bue. PULM/CHEST: Effort normal and breath sounds normal. No respiratory distress. No stridor. She has no wheezes. She has no rales. -Chest Wall: She exhibits no tenderness. Pain on palpation of the right inferolateral ribs reproducing chief complaint. ABD: The abdomen is soft. There is no tenderness. There is no rebound, no guarding, no Love's sign and no tenderness at McBurney's point. Rovsig negative MUSC/SKEL: Pelvis stable. No C, T, or L-spine tenderness. Right upper extremity: Swelling and bruising over the right upper extremity. Palpable radial pulse. Compartments of the upper extremity are soft. Pain on palpation of the right proximal humerus. Left upper extremity: Palpable radial pulse compartments are soft. NEURO: Motor and sensation grossly intact Course Course 1906: The patient was evaluated in room D9. A complete history and physical exam was performed Cardiac monitoring: An order was placed for continuous cardiac monitoring. The monitor shows a rate of 90 with sinus rhythm interpreted by mo 2054: Vital signs stable. Imaging shows a right proximal humerus fracture as well as right rib fracture. Patient placed in sling. No other traumatic injuries. Patient has DKA on labs and hypomagnesemia. Magnesium repletion started in the emergency department. Patient started on insulin drip in the emergency department for DKA. Discussed case with Dr. Aguilar on-call orthopedics and he is okay to be on consult for the patient asked that a CT be performed of the shoulder. Patient will be admitted to the medicine service given her DKA. Dr. Barry notified. Administered Medications Acetaminophen (Acetaminophen 325 Mg Tab) 650 mg PO Q6 [facility] Stop: 09/01/23 23:29 Last Admin: 08/03/23 00:07 Dose: 650 mg Documented By: ASHLEY Insulin Human Regular 250 (units/ Sodium Chloride) 250 mls @ 6.8 mls/hr IV .Q24H JOE; Protocol Stop: 09/01/23 22:44 Last Titration: 08/03/23 00:37 Dose: 0 units/hr, 0 mls/hr Documented By: ASHLEY Co-signed By: JAVIER Titration: 08/02/23 23:33 Dose: 6.8 units/hr, 6.8 mls/hr Documented By: ASHLEY Co-signed By: FRANCISCO Admin: 08/02/23 22:55 Dose: 5.7 units/hr, 5.7 mls/hr Documented By: JOHNSON Co-signed By: REGINA Magnesium Sulfate/Dextrose (Magnesium Sulfate / D5w) 1 gm in 100 mls @ 50 mls/hr IV Q2H JOE Stop: 08/03/23 05:24 Last Admin: 08/03/23 00:05 Dose: 50 mls/hr Documented By: ASHLEY Potassium Chloride/Dextrose/Sod Cl (D5w And 1/2nss + 20meq Kcl) 20 meq in 1,000 mls @ 125 mls/hr IV .Q8H JOE Stop: 09/02/23 00:44 Last Admin: 08/03/23 00:56 Dose: 125 mls/hr Documented By: ASHLEY Insulin Aspart (Insulin Aspart Per Unit Charge) 0 units SC ACHS JOE Stop: 09/01/23 20:59 Last Admin: 08/02/23 21:19 Dose: Not Given Documented By: LIZZY Morphine Sulfate (Morphine Sulfate 2 Mg/Ml Carp) 2 mg IV Q4H PRN PRN Reason: Pain(5+) Stop: 08/16/23 21:29 Last Admin: 08/02/23 22:17 Dose: 2 mg Documented By: JOHNSON Discontinued Medications Sodium Chloride (Nss) 500 mls @ 999 mls/hr IV .Q31M ONE Stop: 08/02/23 18:56 Last Infusion: 08/02/23 22:00 Dose: Infused Documented By: Admin: 08/02/23 19:26 Dose: 999 mls/hr Documented By: LIZZY Acetaminophen (Ofirmev) 1,000 mg in 100 mls @ 400 mls/hr IV NOW [facility] Stop: 08/02/23 18:40 Last Infusion: 08/02/23 21:59 Dose: Infused Documented By: Admin: 08/02/23 19:25 Dose: 400 mls/hr Documented By: LIZZY Sodium Chloride (Nss) 1,000 mls @ 999 mls/hr IV .Q1H1M ONE Stop: 08/02/23 21:21 Last Admin: 08/03/23 00:58 Dose: Not Given Documented By: ASHLEY Magnesium Sulfate/Dextrose (Magnesium Sulfate / D5w) 1 gm in 100 mls @ 100 mls/hr IV Q1H [facility] Stop: 08/02/23 22:53 Last Admin: 08/02/23 21:54 Dose: Not Given Documented By: JOHNSON Potassium Chloride 20 meq/ (Parenteral Electrolytes) 1,010 mls @ 125 mls/hr IV .Q8H5M [facility] Stop: 09/01/23 21:44 Last Infusion: 08/03/23 00:56 Dose: Infused Documented By: Admin: 08/02/23 22:39 Dose: 125 mls/hr Documented By: JOHNSON Ioversol (Optiray 320 100ml) 94 ml IV ONCE ONE Stop: 08/02/23 19:55 Last Admin: 08/02/23 19:54 Dose: 94 ml Documented By: ERAN Magnesium Oxide (Magnesium Oxide 400 Mg Tab) 400 mg PO NOW STA Stop: 08/02/23 21:42 Last Admin: 08/02/23 22:17 Dose: 400 mg Documented By: JOHNSON Morphine Sulfate (Morphine Sulfate 2 Mg/Ml Carp) 2 mg IV NOW STA Stop: 08/02/23 20:00 Last Admin: 08/02/23 22:27 Dose: Not Given Documented By: JOHNSON Potassium Chloride (Potassium Chloride Crtab 20 Meq Tabcr) 40 meq PO NOW STA Stop: 08/02/23 21:47 Last Admin: 08/02/23 22:17 Dose: 40 meq Documented By: JOHNSON Critical Care Time Critical Care Time: Yes Total Critical Care Time: 58 I have personally spent greater than 58 minutes of critical care time in the direct management of this patient. This includes bedside care, interpretation of diagnostic studies, and testing, discussion with consultants, patient, and family members, and other required patient management activities. This 58 minutes is in excess of all separately billable procedures. Medical Decision Making Laboratory Data Attestation: I reviewed the patient's lab results. 08/02/23 21:13 08/02/23 21:13 Lab Results 08/02/23 08/02/23 08/02/23 Range/Units 18:31 20:59 21:13 WBC 7.57 6.89 (4.8-10.8) K/ul RBC 3.51 L 3.46 L (4.20-5.40) M/uL Hgb 10.8 L 10.6 L (12.0-16.0) g/dl Hct 31.6 L 30.5 L (37.0-47.0) % MCV 90.0 88.2 (80.0-100.0) fL MCH 30.8 30.6 (25.0-34.0) pg MCHC 34.2 34.8 (32.0-36.0) g/dL RDW Std Deviation 42.5 40.9 (36.4-46.3) fL RDW Coeff of Emery 12.9 12.7 (11.5-14.5) % Plt Count 271 249 (130-400) K/uL MPV 10.9 11.2 (9.4-12.4) fL Immature Gran % (Auto) 0.7 0.7 % Neut % (Auto) 72.8 74.3 % Lymph % (Auto) 11.0 10.3 % Independence % (Auto) 13.5 12.9 % Eos % (Auto) 1.1 0.6 % Baso % (Auto) 0.9 1.2 % Neut # (Auto) 5.52 5.12 (1.40-6.50) K/uL Lymph # (Auto) 0.83 L 0.71 L (1.20-3.40) K/uL Independence # (Auto) 1.02 H 0.89 H (0.11-0.59) K/uL Eos # (Auto) 0.08 0.04 (0.00-0.50) K/uL Baso # (Auto) 0.07 0.08 (0.00-0.20) K/uL Immature Gran # (Auto) 0.05 0.05 (0.01-0.20) K/uL PT 11.0 (9.0-12.0) Seconds INR 1.0 (0.9-1.1) APTT 26 (21-31) Seconds PTT Ratio 1.0 ABG pH 7.48 H (7.35-7.45) ABG pCO2 27 L (35-46) mmHg ABG pO2 129 H (80-95) mmHg ABG HCO3 20 (19-24) mmol/L ABG O2 Saturation 98.5 H (90-95) % ABG Base Excess -2.1 (-9-1.8) mEq/L Anders Test Pos (Pos) Oxygen Given 2L Sodium 132 L 133 L (136-145) mmol/L Potassium 4.2 3.7 (3.5-5.1) mmol/L Chloride 98 100 (98-107) mmol/L Carbon Dioxide 19 L 20 L (21-32) mmol/L Anion Gap 15 H 13 H (3-11) BUN 20 18 (6-23) mg/dl Creatinine 0.82 0.70 (0.6-1.2) mg/dl Est Cr Clr Drug Dosing Not Reportable 45.5 Est GFR ( Amer) 75.6 91.6 ml/min Est GFR (Non-Af Amer) 65.3 79.0 ml/min BUN/Creatinine Ratio 24.4 H 25.7 H (10-20) Glucose 547 H* 401 H* (70-99(Fasting)) mg/dl POC Glucose 428 H* (70-99) mg/dl Estimat Average Glucose 186 mg/dl Hemoglobin A1c 8.1 H (4.5-5.6) % Calcium 8.9 8.5 L (8.6-10.3) mg/dl Phosphorus 2.7 (2.5-4.9) mg/dl Magnesium 1.3 L 1.3 L (1.7-2.4) mg/dl Total Bilirubin 0.7 0.7 (0.2-1.0) mg/dl AST 15 13 (13-39) U/L ALT 12 13 (7-52) U/L Alkaline Phosphatase 66 62 (34-104) U/L Troponin I High Sens 5.6 (0-14) pg/ml Total Protein 6.7 6.2 (6.0-8.3) gm/dl Albumin 4.0 3.7 (3.4-5.0) gm/dl Globulin 2.7 2.5 (2.5-4.0) gm/dl Albumin/Globulin Ratio 1.5 1.5 (0.9-2) Imaging Data Attestation: I personally reviewed and interpreted this imaging study as follows: My Impression: Shoulder x-ray: Right proximal humerus fracture. Radiologist's Impression: Abdomen/Pelvis CT 08/02/23 18:27 Exam(s): CT ABDOMEN + PELVIS With Contrast IV Amt: 93ml optiray 320 EXAM: CT Abdomen and Pelvis With Intravenous Contrast CLINICAL HISTORY: Reason for exam: Trauma. TECHNIQUE: Axial computed tomography images of the abdomen and pelvis with intravenous contrast. CTDI is 16.37 mGy and DLP is 471.37 mGy-cm. Automated exposure control was utilized for the study. A dose lowering technique was utilized adhering to the principles of ALARA. CONTRAST: Patient received 93ml optiray 320 of IV contrast COMPARISON: No relevant prior studies available. FINDINGS: Lung bases: Unremarkable. No mass. No consolidation. ABDOMEN: Liver: Unremarkable. No mass. Gallbladder and bile ducts: See below. Pancreas: 2.6 mm calcific density in the head of the pancreas favored to be within the distal common bile duct without biliary dilatation. Spleen: Unremarkable. No splenomegaly. Adrenals: Unremarkable. No mass. Kidneys and ureters: 1.1 cm simple cyst arising off the mid left kidney. No further workup is required. No hydronephrosis. Stomach and bowel: Severe sigmoid diverticulosis without evidence of diverticulitis. No obstruction. PELVIS: Appendix: Appendix is not identified but there are no secondary signs of acute appendicitis. Bladder: Unremarkable. No mass. Reproductive: Unremarkable as visualized. ABDOMEN and PELVIS: Intraperitoneal space: Unremarkable. No free air. No significant fluid collection. Bones/joints: Severe L1 compression fracture with retropulsion is favored to be chronic. No dislocation. Soft tissues: Small periumbilical hernia. Vasculature: Unremarkable. No abdominal aortic aneurysm. Lymph nodes: Unremarkable. No enlarged lymph nodes. IMPRESSION: No acute abdominal or pelvic injury. 2.6 mm calcific density in the head of the pancreas favored to be within the distal common bile duct without biliary dilatation. Electronically signed by: Joby Quispe M.D. 08/02/23 20:[address] 08/02/23 18:27 Exam(s): CT C SPINE EXAM: CT Cervical Spine Without Intravenous Contrast CLINICAL HISTORY: Reason for exam: Trauma. TECHNIQUE: Axial computed tomography images of the cervical spine without intravenous contrast. CTDI is 26.19 mGy and DLP is 468.38 mGy-cm. Automated exposure control was utilized for the study. A dose lowering technique was utilized adhering to the principles of ALARA. COMPARISON: No relevant prior studies available. FINDINGS: Vertebrae: Grade 1 anterolisthesis of C2 relative to C3 and C3 relative to C4. Otherwise alignment is maintained with preservation of vertebral body heights. There are severe erosive changes at the base of the odontoid with only the anterior cortex remaining intact. No definite fracture is present. There is soft tissue swelling anterior to the base of the dens which is favored to be the cause of the erosive changes. Discs/spinal canal/neural foramina: Severe degenerative joint disease of the C4-5, C5-6, and C6-7 levels without significant bony spinal canal stenosis at any cervical level. Soft tissues: See above. IMPRESSION: No acute findings in the cervical spine. Electronically signed by: Joby Quispe M.D. 08/02/23 20:[address] 08/02/23 18:27 Exam(s): CT HEAD Without Contrast EXAM: CT Head Without Intravenous Contrast CLINICAL HISTORY: Reason for exam: Trauma. TECHNIQUE: Axial computed tomography images of the head/brain without intravenous contrast. CTDI is 34.77 mGy and DLP is 624.41 mGy-cm. Automated exposure control was utilized for the study. A dose lowering technique was utilized adhering to the principles of ALARA. COMPARISON: No relevant prior studies available. FINDINGS: Brain: Mild periventricular white matter changes, likely related to micro angiopathy. No hemorrhage. Ventricles: Unremarkable. No ventriculomegaly. Bones/joints: Unremarkable. No acute fracture. Soft tissues: Unremarkable. Sinuses: Unremarkable as visualized. No acute sinusitis. Mastoid air cells: Unremarkable as visualized. No mastoid effusion. IMPRESSION: No acute findings in the head/brain. Electronically signed by: Joby Quispe M.D. 08/02/23 20:22 PM Chest X-Ray 08/02/23 19:10 SINGLE VIEW CHEST CLINICAL HISTORY: Fall. FINDINGS: An AP, portable, supine chest radiograph is obtained. No prior studies are available for comparison at the time of dictation. The examination is degraded by portable technique and apical lordotic positioning. The patient is status post midline sternotomy. The heart is mildly enlarged noting atherosclerotic calcification of the thoracic aorta. The pulmonary vasculature is noncongested. Nonspecific interstitial thickening is likely chronic. There is mild bibasilar scarring/atelectasis. The lungs and pleural spaces are otherwise clear. No pneumothorax is seen. The skeletal structures are osteopenic. There is impacted and comminuted fracture to the right humeral head and neck. Arthritic change is seen in the shoulders. IMPRESSION: 1. Mild cardiomegaly without radiographic evidence of congestive failure. 2. There is no airspace consolidation or large pleural effusion. 3. Comminuted fracture of the right humeral head and neck.. ACT 112: Negative or not required by law. Electronically signed by: Herb Mehta M.D. 08/02/2023 7:[address] 08/02/23 19:21 Exam(s): CT CHEST With Contrast IV Amt: 93 ml optiray 320 EXAM: CT Chest With Intravenous Contrast CLINICAL HISTORY: Reason for exam: fall. TECHNIQUE: Axial computed tomography images of the chest with intravenous contrast. CTDI is 20.73 mGy and DLP is 907.8 mGy-cm. Automated exposure control was utilized for the study. A dose lowering technique was utilized adhering to the principles of ALARA. CONTRAST: Patient received 93 ml optiray 320 of IV contrast COMPARISON: No relevant prior studies available. FINDINGS: Lungs: Unremarkable. No mass. No consolidation. Pleural space: Unremarkable. No pneumothorax. No significant effusion. Heart: Unremarkable. No cardiomegaly. No significant pericardial effusion. No significant coronary artery calcifications. Bones/joints: Nondisplaced right sixth lateral rib fracture. Right humeral neck fracture. Large glenohumeral synovial fluid collection. No dislocation. Soft tissues: Unremarkable. Vasculature: Unremarkable. No thoracic aortic aneurysm. Lymph nodes: Unremarkable. No enlarged lymph nodes. IMPRESSION: 1. Nondisplaced right sixth lateral rib fracture. 2. Right humeral neck fracture. Electronically signed by: Joby Quispe M.D. 08/02/23 20:[address] 08/02/23 20:54 Exam(s): CT RIGHT SHOULDER Without Contrast EXAM: CT Right Upper Extremity Without Intravenous Contrast, Shoulder CLINICAL HISTORY: Reason for exam: fx. TECHNIQUE: Axial computed tomography images of the right shoulder without intravenous contrast. CTDI is 19.67 mGy and DLP is 480.68 mGy-cm. Automated exposure control was utilized for the study. A dose lowering technique was utilized adhering to the principles of ALARA. COMPARISON: No relevant prior studies available. FINDINGS: Bones/joints: Comminuted right humeral neck fracture with early callus formation and is likely subacute. Severe degenerative joint disease of the right glenohumeral joint. Large joint effusion of the glenohumeral joint extending into the axilla. No dislocation. Soft tissues: Unremarkable. Other findings: . IMPRESSION: Comminuted right humeral neck fracture with early callus formation and is likely subacute. Electronically signed by: Joby Quispe M.D. 08/02/23 23:24 PM ECG Data Attestation: I personally reviewed and interpreted this ECG as follows: Rate (beats per minute): 88 Rhythm: + normal sinus ECG Intervals/blocks: + Normal IL and + Normal QT-c ECG ST segments: + Normal ST segments Additional Comments: QRS 74 MDM Narrative 1907: The patient was evaluated in room D9. A complete history and physical exam was performed Cardiac monitoring: An order was placed for continuous cardiac monitoring. The monitor shows a rate of 90 with sinus rhythm interpreted by me 2053: Vital signs stable. Imaging shows a right proximal humerus fracture as well as right rib fracture. Patient placed in sling. No other traumatic injuries. Patient has DKA on labs and hypomagnesemia. Magnesium repletion started in the emergency department. Patient started on insulin drip in the emergency department for DKA. Discussed case with Dr. Aguilar on-call orthopedics and he is okay to be on consult for the patient asked that a CT be performed of the shoulder. Patient will be admitted to the medicine service given her DKA. Dr. Barry notified. Impression & Plan DKA (diabetic ketoacidosis), Fracture, humerus, Closed rib fracture Discharge Plan Visit Data Chief Complaint: Fall Stated Complaint: FELL, HIT WHOLE BODY ED Provider: Law Og Discharge Problem: DKA (diabetic ketoacidosis), Fracture, humerus, Closed rib fracture Patient Disposition: Admitted As Inpatient Discharge Instructions Interventions: ED Discharge Assessment Last Done: 08/02/23 23:34 Discharge Problem: DKA (diabetic ketoacidosis) Qualifiers: Diabetes mellitus type: other specified (including RICHAR) Diabetes mellitus complication detail: without coma Qualified Code(s): E13.10 - Other specified diabetes mellitus with ketoacidosis without coma Fracture, humerus Qualifiers: Encounter type: initial encounter Humerus Location: proximal Fracture type: c losed Fracture morphology: unspecified fracture morphology Laterality: right Q ualified Code(s): S42.201A - Unspecified fracture of upper end of right humerus, initial encounter for closed fracture Closed rib fracture Qualifiers: Encounter type: initial encounter Rib fracture type: single rib Laterality: r ight Qualified Code(s): S22.31XA - Fracture of one rib, right side, initial encounter for closed fracture
[2023-08-03] MEDS: POTASSIUM CHLORIDE CRTAB 20 MEQ TABCR PO SCH (01:53)
[2023-08-03 01:54] LABS: Calcium 8.4 mg/dl (8.6-10.3); Magnesium 1.6 mg/dl (1.7-2.4)
[2023-08-03 01:59] LABS: Creatinine Clr Calc Pharmacy 52.7 ml/min; Est GFR (African American) 96.3 ml/min; Est GFR (Non-African American) 83.1 ml/min; Phosphorus 2.5 mg/dl (2.5-4.9)
[2023-08-03 06:32] LABS: Basophils # (auto) 0.06 K/uL (0.00-0.20); Eosinophils # (auto) 0.13 K/uL (0.00-0.50); Eosinophils % (auto) 2.3 %; Hematocrit (blood only) 28.4 % (37.0-47.0); Hemoglobin 9.5 g/dl (12.0-16.0); Immature Granulocytes # (auto) 0.03 K/uL (0.01-0.20); Immature Granulocytes % (auto) 0.5 %; Lymphocytes # (auto) 1.28 K/uL (1.20-3.40); Lymphocytes % (auto) 22.3 %; Mean Corpuscular Hemoglobin 30.4 pg (25.0-34.0); Mean Corpuscular Hgb Conc 33.5 g/dL (32.0-36.0); Mean Corpuscular Volume 90.7 fL (80.0-100.0); Mean Platelet Volume 10.6 fL (9.4-12.4); Monocytes # (auto) 0.86 K/uL (0.11-0.59); Neutrophils # (auto) 3.37 K/uL (1.40-6.50); Neutrophils % (auto) 58.9 %; Platelet Count 187 K/uL (130-400); Red Blood Count 3.13 M/uL (4.20-5.40); White Blood Count 5.73 K/ul (4.8-10.8)
[2023-08-03 06:48] LABS: Albumin Globulin Ratio 1.4 (0.9-2); Albumin Level 3.3 gm/dl (3.4-5.0); BUN Creatinine Ratio 28.6 (10-20); Bilirubin,Total 0.6 mg/dl (0.2-1.0); Calcium 7.9 mg/dl (8.6-10.3); Creatinine Clr Calc Pharmacy 56.8 ml/min; Est GFR (African American) 98.5 ml/min; Globulin 2.3 gm/dl (2.5-4.0); Magnesium 2.6 mg/dl (1.7-2.4); Phosphorus 3.1 mg/dl (2.5-4.9); Potassium 4.3 mmol/L (3.5-5.1); Total Protein 5.6 gm/dl (6.0-8.3)
--- NOTE | 2023-08-03 07:33 | XRay Report ---
RIGHT FOREARM 2 VIEWS HISTORY: Trauma COMPARISON: None. FINDINGS: There is no fracture or dislocation. Diffuse soft tissue swelling. Degenerative changes wit hin the wrist and elbow. No radiopaque foreign bodies. IMPRESSION: No fractures. ACT 112: Negative or not required by law. Electronically signed by: Leon Angeles M.D. 08/03/2023 7:32 AM
--- NOTE | 2023-08-03 07:34 | XRay Report ---
RIGHT KNEE 3 VIEWS HISTORY: Trauma COMPARISON: None. FINDINGS: There is no fracture or dislocation. No significant knee effusion. Mild anterior soft tissu e swelling. There is a cerclage wire within the distal femur. Severe osteoarthritis of the patellofem oral joint. Chondrocalcinosis no fracture or dislocation within the right knee. IMPRESSION: No fractures. ACT 112: Negative or not required by law. Electronically signed by: Leon Angeles M.D. 08/03/2023 7:33 AM
--- NOTE | 2023-08-03 07:34 | XRay Report ---
XR shoulder RT min 2V routine CLINICAL HISTORY: With Y view - trauma COMPARISON: None FINDINGS: There is an acute moderately displaced, markedly comminuted and impacted right humeral hea d and neck fracture. Several calcific densities along the superolateral aspect of the right humeral h ead are noted. Glenohumeral alignment is anatomic. There is severe joint space narrowing and osteophy tosis of the right glenohumeral joint. AC joint appears intact. IMPRESSION: 1. Acute moderately displaced, markedly comminuted and impacted right humeral head and neck fracture. 2. Severe right glenohumeral joint osteoarthritis. ACT 112: Negative or not required by law. Electronically signed by: rByan Delaney M.D. 08/03/2023 7:33 AM
--- NOTE | 2023-08-03 07:48 | XRay Report ---
XR humerus RT 2V CLINICAL HISTORY: Trauma COMPARISON: None FINDINGS: There is an acute comminuted displaced impacted right humeral head and neck fracture. A fe w adjacent calcific densities adjacent to the humeral head are present. No distal right humeral fract ure is present. Alignment of the right elbow appears anatomic. There is severe osteoarthritis of the right glenohumeral joint and moderate arthritis within the right elbow. Right arm soft tissue swellin g is present. A small electronic device within the right upper arm is present. IMPRESSION: 1. Acute comminuted displaced impacted right humeral head and neck fracture. 2. No distal right humeral fracture. 3. Severe right glenohumeral joint osteoarthritis. 4. Right arm soft tissue swelling, most pronounced at the elbow. ACT 112: Negative or not required by law. Electronically signed by: Bryan Delaney M.D. 08/03/2023 7:47 AM
[2023-08-03] MEDS: LANTUS PER UNIT CHARGE SC ONE (07:49)
--- NOTE | 2023-08-03 07:52 | XRay Report ---
XR hand RT min 3V routine CLINICAL HISTORY: Trauma COMPARISON: None FINDINGS: No fractures within the right hand are identified. Diffuse soft tissue swelling is noted. Severe osteoarthritis of the right first carpometacarpal joint is present. There is moderate radiocar pal joint osteoarthritis. There is also moderate osteoarthritis within multiple interphalangeal joint s. IMPRESSION: 1. No fracture or dislocation within the right hand. 2. Moderate to severe osteoarthritis within several articulations of the right wrist and hand. 3. Soft tissue swelling. ACT 112: Negative or not required by law. Electronically signed by: Bryan Delaney M.D. 08/03/2023 7:51 AM
--- NOTE | 2023-08-03 07:52 | Electrocardiogram Report ---
Test Reason : Blood Pressure : / mmHG Vent. Rate : 088 BPM Atrial Rate : 088 BPM P-R Int : 150 ms QRS Dur : 074 ms QT Int : 376 ms P-R-T Axes : -04 005 038 degrees QTc Int : 454 ms Normal sinus rhythm Poor R wave progression, consider anterior GA vs. lead placement vs. LVH Abnormal ECG No previous ECGs available Confirmed by Jurgen Paul ([id number]) on 08/03/2023 7:52:43 AM Referred By: REFERRED SELF Confirmed By:Jurgen Paul
[2023-08-03] MEDS: INSULIN ASPART PER UNIT CHARGE SC SCH (07:53)
[2023-08-03] MEDS ORDERED: INSULIN ASPART PER UNIT CHARGE SC SCH (09:00)
--- NOTE | 2023-08-03 09:30 | Orthopedic Consultation ---
Date of Consultation August 03, 2023 Orthopedic Consult 83-year-old pleasant female who emig[place] [facility] [place] a [place]. She is admitted to the hospital with DKA and multiple injuries including a right proximal humerus fracture and right sixth rib fracture. She notes that her humerus and arm are feeling better. She denies any numbness or tingling. She denies any neck pain headache concussion symptoms. Denies any back pain. She denies any hip pain. Past medical history is marked for coronary artery disease multiple hip replacements bilaterally carotid stenosis diabetes. X-rays and CT scan reviewed revealing comminuted proximal humerus fracture with glenohumeral reduction anatomically position. Physical exam reveals ecchymosis about the upper arm consistent with being more than 2 to 3 days old. Neurovascular check median radial ulnar suprascapular and axillary nerves are normal. Skin is healthy. Chest is not markedly uncomfortable. Abdomen soft nontender. Neck full range of motion cranial nerves intact. Both lower extremity hip exam is benign foot and ankle exam is benign left upper extremity exam is benign. Imaging as noted above. Med reconciliation sheet reviewed. Past medical and past surgical history form reviewed. Please see previous notes. I will not include in this note. They have been reviewed. Assessment comminuted fracture right proximal humerus this point in time would suggest nonsurgical management. Serial x-rays every 7 to 10 days. Initiate PT at 14 days. There is a chance that this could be increased its displacement and require conversion to a joint replacement however there is a high probability that nonsurgical management would be successful with this. Would suggest immobilization with a sling with belly band and avoid physical therapy or movement of the shoulder for another 10 to 12 days. She states she understands. Can follow-up in the office in a week after discharge.
--- NOTE | 2023-08-03 09:32 | Orthopedic Consultation ---
Date of Consultation August 03, 2023 History of Present Illness Reason for Consultation: Right shoulder pain Requesting Physician: Hospitalist Attending Physician: Sukh Philippe History of Present Illness See my other note. Allergies Allergy/AdvReac Type Severity Reaction Status Date / Time canagliflozin [From Invokana] AdvReac Severe Vaginal Unverified 07/11/23 14:45 fungal infection alendronate sodium AdvReac Unknown Night time Unverified 07/11/23 14:45 [From Fosamax] muscle cramps epinephrine AdvReac Unknown Unverified 07/11/23 14:45 exenatide AdvReac Unknown Unverified 07/11/23 14:45 insulin detemir AdvReac Unknown Unverified 07/11/23 14:45 latex AdvReac Unknown Edema Unverified 07/11/23 14:45 rosuvastatin [From Crestor] AdvReac Unknown Muscle pain Unverified 07/11/23 14:45 silicone AdvReac Unknown Unverified 07/11/23 14:45 sitagliptin [From Januvia] AdvReac Unknown Muscle pain Unverified 07/11/23 14:45 Sulfa (Sulfonamide AdvReac Unknown Hives Unverified 07/11/23 14:45 Antibiotics) vecuronium AdvReac Unknown Unverified 07/11/23 14:45 Home Medications Medication Instructions Recorded Confirmed Type atenolol 25 mg tablet 25 mg PO DAILY 04/15/21 08/02/23 History isosorbide mononitrate 30 mg 30 mg PO DAILY 04/15/21 08/02/23 History tablet,extended release 24 hr metformin 1,000 mg tablet 1,000 mg PO BID 04/15/21 08/02/23 History lancets 33 gauge ([facility] #100 ea 10/06/21 08/02/23 History Plus Lancet) atorvastatin 40 mg tablet 40 mg PO DAILY #90 tabs 02/15/22 08/02/23 Rx [facility] 04/08/22 08/02/23 History Verio test strips) cyclosporine 0.05 % eye drops in a 1 drp ophthalmic (eye) Q12H PRN 04/08/22 08/02/23 History dropperette (Restasis) Dry Eyes yszvqipo-ycuxnsq-dbxs-lutein tablet 1 tab PO DAILY 04/08/22 08/02/23 History pen needle, diabetic 31 gauge x #100 ea 09/28/22 08/02/23 Rx 5/16" (BD Ultra-Fine Short Pen Needle) aspirin 81 mg tablet,delayed 162 mg PO DAILY 12/29/22 08/02/23 History release nitroglycerin 0.4 mg sublingual 0.4 mg sublingual Q5M PRN chest 12/29/22 08/02/23 Rx tablet pain #25 tabs OneTouch Verio Flex meter #1 ea 05/19/23 08/02/23 Rx (blood-glucose meter) duloxetine 30 mg capsule,delayed 30 mg PO DAILY #90 caps 07/24/23 08/02/23 Rx release amlodipine 5 mg tablet 5 mg PO DAILY 08/02/23 08/02/23 History aspirin 81 mg tablet,delayed 81 mg PO DAILY 08/02/23 08/02/23 History release insulin glargine 100 unit/mL (3 12 unit subcut QPM 08/02/23 08/02/23 History mL) subcutaneous pen (Lantus Solostar U-100 Insulin) oxybutynin chloride 5 mg tablet 5 mg PO Q OTHER DAY 08/02/23 08/02/23 History repaglinide 1 mg tablet 1 mg PO DAILY PRN ud 08/02/23 08/02/23 History Patient History Medical History Thrombocytosis Type 2 diabetes mellitus with diabetic neuropathy, without long-term current use of insulin 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 Spinal stenosis of lumbar region Hypothyroidism Primary osteoarthritis of left hip DJD (degenerative joint disease) of thoracic spine CAROL (obstructive sleep apnea) Insomnia HTN, goal below 150/90 Age-related osteoporosis without current pathological fracture Osteoarthritis of hip Surgical History S/P hip replacement Right S/P tonsillectomy and adenoidectomy S/P appendectomy S/P colonoscopy Status post left hip replacement Family History Sister Cancer Ovarian cancer Mother Neurological disorder Denies family history of Prostate cancer Myocardial infarction Breast cancer Colorectal cancer Social History Smoking Status: Former smoker Tobacco Type: Cigarettes Age Started Using Tobacco: 24; Age Quit Using Tobacco: 63; packs per day: 0.33; Second Hand Exposure: No; Do You Dip or Chew Tobacco: No; Tobacco Cessation Education Requested by Patient: No Hx Alcohol Use: Yes Alcohol type: wine and hard liquor Alcohol Intake Frequency: 4 or More x per/Week Alcohol Intake Frequency Comment: wine at lunch and dinner time, Cognac in coffee in mornings Hx Substance Use: No Preferred Language: Singaporean Communication Ability: Effective Visual Impairment: Limited Hearing Ability: Normal Amusement Equipment Operator Required: No Beliefs That Will Affect Care: None marital status: Current Living Situation: Spouse current occupational status: retired How many Children do You have: 5 Other Information That Helps Us Care for You: No Feels Safe at Home: Yes Safety Concerns: Feels Safe At This Time Childhood Exposure to Second-Hand Smoke: No Diet: other Diet Comment: Mediterranean caffeine: Yes during the past year weight has: remained stable Dental Care, Regularly: Yes Physical Activity Frequency: Daily Seatbelt Use: always Sunscreen Use: Yes Assistive Devices: Denture - Upper and Denture - Lower Results & Data Vital Signs (Past 12 Hours) Vital Signs Temp Pulse Pulse Resp BP Pulse Ox O2 Del Method 08/03/23 07:59 Room Air 08/03/23 07:15 36.4 C L 56 L 18 148/77 H 99 Room Air 08/03/23 07:00 59 L 08/03/23 04:45 36.6 C 57 L 18 128/80 95 Room Air 08/03/23 00:04 65 08/02/23 23:55 36.4 C L 59 L 18 152/77 H 97 Room Air
--- NOTE | 2023-08-03 09:39 | Pharmacy Report ---
Pharmacy Glycemic Short Note 2 - Date of Service August 03, 2023 - Glycemic Short BSG Results (Last 24 hours): 08/02/23 08/02/23 08/02/23 18:31 20:59 21:13 Glucose 547 H* 401 H* POC Glucose 428 H* 08/02/23 08/02/23 08/03/23 22:23 23:26 00:28 Glucose POC Glucose 353 H* 368 H* 181 H 08/03/23 08/03/23 08/03/23 01:20 01:41 02:45 Glucose 115 H POC Glucose 168 H 106 H 08/03/23 08/03/23 08/03/23 03:23 04:52 05:43 Glucose POC Glucose 143 H 179 H 240 H 08/03/23 08/03/23 08/03/23 05:48 06:46 07:42 Glucose 138 H POC Glucose 132 H 121 H 08/03/23 08/03/23 08:43 08:52 Glucose POC Glucose 152 H 153 H 08/03/23 08/03/23 09:45 11:15 POC Glucose 159 H 122 H OUTPATIENT ANTIDIABETIC REGIMEN: * Lantus 12 units SQ HS * Metformin 1000mg PO BID * A1c 8.1% 08/02/23 ASSESSMENT: * 83 yo F, admitted with DKA, Type 2 DM, and multiple injuries including a right proximal humerus fracture and right sixth rib fracture. Ortho consult today. Nonsurgical management at this time. * Started on insulin drip and DKA protocol last night at 2200 - drip rate down to 1unit/her - labs improved, AG closed, transition to SC insulin regimen. * Patient NPO last night --> started clears at lunch today. IVFs discontinued. PLAN FOR INPATIENT GLYCEMIC CONTROL: * Hold outpatient oral diabetes medications * IV insulin infusion, 1unit/hr - DC at 1030 today * Basal insulin * Lantus 12 units SQ x 1 dose @0730, overlap with insulin drip x 3 hours * Bolus insulin * NovoLog per scale ACHS or Q6hrs while NPO * Goal Range: Low 110 mg/dL - High 140 mg/dL * Correction Factor: 30 mg/dL/unit * Nutritional / Prandial insulin per carb ratio of 1 unit per 10 grams CHO consumed
[2023-08-03] MEDS: STAT IV Infusion **Titration per Protocol STA (20:44)
[2023-08-03] MEDS: LANTUS PER UNIT CHARGE SC SCH (20:46)
--- NOTE | 2023-08-03 22:17 | Hospitalist Progress Note ---
Date of Service August 03, 2023 Assessment & Plan (1) Fracture of humerus, right, closed: (2) Closed rib fracture: (3) DKA (diabetic ketoacidosis): (4) Uncontrolled type 2 diabetes mellitus with hyperglycemia: (5) CAD (coronary artery disease): (6) S/P CABG x 3: (7) Idiopathic polyneuropathy: (8) Diabetes mellitus type 2, controlled, with complications: (9) Essential hypertension with goal blood pressure less than 130/80: Plan Closed right humeral neck fracture- Status post mechanical fall N.p.o. after midnight Consult orthopedic surgery Pain management with Tylenol and morphine IV as needed Patient reports feeling safe at home, denies any abuse. continue pain control DKA/diabetes mellitus- Insulin drip per protocol begun in the ED and will be continued Every 4 hours laboratories: BMP, magnesium, venous blood gas LR 150 MLS per hour Oral potassium to be supplemented, due to poor IV access and concerns regarding trauma to the veins Hold repaglinide Check hemoglobin A1c Will hopefully alleviate to convert to usual glargine On 08/02 anion gap is closed and diet resumed resumed glargine. Unsure as to why patient stopped taking her medications. CAD/hypertensionhistory of CABG- Continue amlodipine, atenolol, isosorbide mononitrate Temporarily hold aspirin for possible procedure Follow routine laboratories Admission and Anticipated Discharge Date Admission Date: August 02, 2023 Subjective Pleasant 83 yo female reports she fell walking with her . She states that he was walking to fast and she tripped and fell She reports later that day she fell backwards and hit her head but does not recall what precipitated that. Patient reports feeling safe at home. Review of Systems Review of Systems: All systems reviewed & are unremarkable except as noted in HPI & below Physical Exam Physical Exam: The patient is awake, alert and oriented 3, well developed and well nourished, normocephalic and atraumatic, lying in bed and in no acute distress. Heart--normal S1 and S2. No murmurs, rubs or gallops. Lungs--clear bilaterally, no respiratory distress, no accessory muscle use. Abdomen--normal bowel sounds and soft. Nontender. Nondistended Extremities-- No edema. Dermatologic-large areas of ecchymoses right arm and shoulder, and right sided rib cage. Psychiatric--normal affect. Results & Data Results & Data Vital Signs (Past 12 Hours) Vital Signs Temp Pulse Pulse Resp BP Pulse Ox O2 Del Method 08/03/23 19:23 37.0 C 72 18 147/79 H 97 Room Air 08/03/23 15:00 65 08/03/23 14:22 36.4 C L 63 17 165/81 H 99 Room Air 08/03/23 10:46 36.4 C L 54 L 17 153/74 H 100 Room Air PG Care Time/CCT Total # of Minutes Spent Total Time Spent with Patient: Total time spent is greater than 50% in coordination of care (as documented) at patient's floor/unit and/or counseling patient: Coding Level of Care Code 81955 SUB INP/OBS CARE 2/35MIN Diagnoses Fracture of humerus, right, closed S42.301A Closed rib fracture S22.31XA Encounter type: initial encounter Laterality: right Rib fracture type: single rib DKA (diabetic ketoacidosis) E13.10 Diabetes mellitus complication detail: without coma Diabetes mellitus type: other specified (including RICHAR) Uncontrolled type 2 diabetes mellitus with hyperglycemia E11.65 CAD (coronary artery disease) I25.10 S/P CABG x 3 Z95.1 Idiopathic polyneuropathy G60.9 Controlled type 2 diabetes mellitus with complication, with long-term current use of insulin E11.8; Z79.4 Diabetes mellitus halfway insulin use: with termite control technician use Essential hypertension with goal blood pressure less than 130/80 I10 (2) Closed rib fracture Encounter type: initial encounter Laterality: right Rib fracture type: single rib Qualified Code(s): S22.31XA - Fracture of one rib, right side, initial encounter for closed fracture (3) DKA (diabetic ketoacidosis) Diabetes mellitus complication detail: without coma Diabetes mellitus type: other specified (including RICHAR) Qualified Code(s): E13.10 - Other specified diabetes mellitus with ketoacidosis without coma (8) Diabetes mellitus type 2, controlled, with complications Diabetes mellitus halfway insulin use: with halfway use Qualified Code(s): E11.8 - Type 2 diabetes mellitus with unspecified complications; Z79.4 - exterminator (current) use of insulin
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
[2023-08-04 07:52] LABS: Anion Gap 7 (3-11); BUN Creatinine Ratio 26.8 (10-20); Blood Urea Nitrogen 15 mg/dl (6-23); C Reactive Protein 2.01 mg/dl (0-0.5); Calcium 7.9 mg/dl (8.6-10.3); Carbon Dioxide 24 mmol/L (21-32); Chloride 104 mmol/L (98-107); Creatinine Clr Calc Pharmacy 56.5 ml/min; Est GFR (African American) 98.5 ml/min; Glucose 192 mg/dl (70-99(Fasting)); Sodium 135 mmol/L (136-145)
[2023-08-04 08:33] LABS: Basophils # (auto) 0.09 K/uL (0.00-0.20); Basophils % (auto) 1.5 %; Eosinophils # (auto) 0.19 K/uL (0.00-0.50); Eosinophils % (auto) 3.2 %; Hematocrit (blood only) 35.3 % (37.0-47.0); Hemoglobin 11.6 g/dl (12.0-16.0); Immature Granulocytes # (auto) 0.04 K/uL (0.01-0.20); Immature Granulocytes % (auto) 0.7 %; Lymphocytes # (auto) 1.27 K/uL (1.20-3.40); Lymphocytes % (auto) 21.3 %; Mean Corpuscular Hemoglobin 30.4 pg (25.0-34.0); Mean Corpuscular Hgb Conc 32.9 g/dL (32.0-36.0); Mean Corpuscular Volume 92.4 fL (80.0-100.0); Mean Platelet Volume 11.9 fL (9.4-12.4); Monocytes # (auto) 0.72 K/uL (0.11-0.59); Monocytes % (auto) 12.1 %; Neutrophils # (auto) 3.66 K/uL (1.40-6.50); Neutrophils % (auto) 61.2 %; Platelet Count 205 K/uL (130-400); Platelet Estimate Normal (Normal); RDW Coefficient of Variation 13.1 % (11.5-14.5); RDW Standard Deviation 44.6 fL (36.4-46.3); Red Blood Count 3.82 M/uL (4.20-5.40); White Blood Count 5.97 K/ul (4.8-10.8)
[2023-08-04] MEDS: LANTUS PER UNIT CHARGE SC ONE (12:45)
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
[2023-08-04] MEDS ORDERED: ARTIFICIAL TEARS OP PRN (14:04)
[2023-08-04] MEDS: DULoxetine HCL 30 MG CAP PO SCH (15:03)
[2023-08-04] MEDS: oxyBUTYnin chloride 5 MG TAB PO SCH (15:03)
[2023-08-04] MEDS: ATENOLOL 25 MG TABLET PO SCH (15:03)
[2023-08-04] MEDS: traMADol HCL 50 MG TABLET PO PRN (17:37)
--- NOTE | 2023-08-04 21:37 | Hospitalist Progress Note ---
Date of Service August 04, 2023 Assessment & Plan (1) Fracture of humerus, right, closed: (2) Closed rib fracture: (3) DKA (diabetic ketoacidosis): (4) Uncontrolled type 2 diabetes mellitus with hyperglycemia: (5) CAD (coronary artery disease): (6) S/P CABG x 3: (7) Idiopathic polyneuropathy: (8) Diabetes mellitus type 2, controlled, with complications: (9) Essential hypertension with goal blood pressure less than 130/80: Plan Closed right humeral neck fracture- Status post mechanical fall Consult orthopedic surgery Pain management with Tylenol and now tramadol. Patient reports feeling safe at home, denies any abuse. will set up office of aging visit for home. continue pain control Discussed with Physical therapy, patient did well but will likely benefit from another day of recovery in the hospital prior to discharge. Not quite at baseline. Will set up home health. DKA/diabetes mellitus- Insulin drip per protocol begun in the ED and will be continued Every 4 hours laboratories: BMP, magnesium, venous blood gas LR 150 MLS per hour Oral potassium to be supplemented, due to poor IV access and concerns regarding trauma to the veins Hold repaglinide Check hemoglobin A1c Will hopefully alleviate to convert to usual glargine On 08/02 anion gap is closed and diet resumed resumed glargine. Unsure as to why patient stopped taking her medications. CAD/hypertensionhistory of CABG- Continue amlodipine, atenolol, isosorbide mononitrate Temporarily hold aspirin for possible procedure Follow routine laboratories Admission and Anticipated Discharge Date Admission Date: August 02, 2023 Subjective Patient reports her pain is better controlled. Patient requesting medication that is weaker than morphine. Patient requesting to be discharged soon. Review of Systems Review of Systems: All systems reviewed & are unremarkable except as noted in HPI & below Physical Exam Physical Exam: The patient is awake, alert and oriented 3, well developed and well nourished, normocephalic and atraumatic, lying in bed and in no acute distress. Heart--normal S1 and S2. No murmurs, rubs or gallops. Lungs--clear bilaterally, no respiratory distress, no accessory muscle use. Abdomen--normal bowel sounds and soft. Nontender. Nondistended Extremities-- No edema. Dermatologic-large areas of ecchymoses right arm and shoulder, and right sided rib cage. Psychiatric--normal affect. Results & Data Results & Data Vital Signs (Past 12 Hours) Vital Signs Temp Pulse Resp BP Pulse Ox O2 Del Method 08/04/23 19:11 36.7 C 63 18 150/72 H 93 Room Air 08/04/23 16:00 36.7 C 69 18 150/66 H 96 Room Air 08/04/23 11:37 36.8 C 94 H 20 115/74 99 Room Air PG Care Time/CCT Total # of Minutes Spent Total Time Spent with Patient: Total time spent is greater than 50% in coordination of care (as documented) at patient's floor/unit and/or counseling patient: Coding Level of Care Code 50644 SUB INP/OBS CARE 3/50MIN Diagnoses Fracture of humerus, right, closed S42.301A Closed rib fracture S22.31XA Encounter type: initial encounter Laterality: right Rib fracture type: single rib DKA (diabetic ketoacidosis) E13.10 Diabetes mellitus complication detail: without coma Diabetes mellitus type: other specified (including RICHAR) Uncontrolled type 2 diabetes mellitus with hyperglycemia E11.65 CAD (coronary artery disease) I25.10 S/P CABG x 3 Z95.1 Idiopathic polyneuropathy G60.9 Controlled type 2 diabetes mellitus with complication, with long-term current use of insulin E11.8; Z79.4 Diabetes mellitus long-term insulin use: with exterminator helper termite use Essential hypertension with goal blood pressure less than 130/80 I10 Time Spent (min) 50 Comment discussed with case management and Physical therapist (2) Closed rib fracture Encounter type: initial encounter Laterality: right Rib fracture type: single rib Qualified Code(s): S22.31XA - Fracture of one rib, right side, initial encounter for closed fracture (3) DKA (diabetic ketoacidosis) Diabetes mellitus complication detail: without coma Diabetes mellitus type: other specified (including RICHAR) Qualified Code(s): E13.10 - Other specified diabetes mellitus with ketoacidosis without coma (8) Diabetes mellitus type 2, controlled, with complications Diabetes mellitus exterminator helper termite insulin use: with long-term use Qualified Code(s): E11.8 - Type 2 diabetes mellitus with unspecified complications; Z79.4 - supervisor intermediates (current) use of insulin
[2023-08-05 08:00] LABS: Calcium 7.8 mg/dl (8.6-10.3); Potassium 5.1 mmol/L (3.5-5.1)
[2023-08-05 08:05] LABS: BUN Creatinine Ratio 35.2 (10-20); Creatinine Clr Calc Pharmacy 58.9 ml/min; Est GFR (African American) 99.7 ml/min
[2023-08-05 08:37] LABS: Basophils # (auto) 0.05 K/uL (0.00-0.20); Basophils % (auto) 0.7 %; Eosinophils # (auto) 0.15 K/uL (0.00-0.50); Hematocrit (blood only) 34.1 % (37.0-47.0); Hemoglobin 11.5 g/dl (12.0-16.0); Immature Granulocytes # (auto) 0.04 K/uL (0.01-0.20); Immature Granulocytes % (auto) 0.5 %; Lymphocytes # (auto) 1.57 K/uL (1.20-3.40); Lymphocytes % (auto) 21.3 %; Mean Corpuscular Hemoglobin 30.7 pg (25.0-34.0); Mean Corpuscular Hgb Conc 33.7 g/dL (32.0-36.0); Mean Corpuscular Volume 91.2 fL (80.0-100.0); Mean Platelet Volume 10.4 fL (9.4-12.4); Monocytes # (auto) 0.59 K/uL (0.11-0.59); Neutrophils # (auto) 4.97 K/uL (1.40-6.50); Neutrophils % (auto) 67.5 %; Platelet Count 276 K/uL (130-400); RDW Standard Deviation 43.4 fL (36.4-46.3); Red Blood Count 3.74 M/uL (4.20-5.40); White Blood Count 7.37 K/ul (4.8-10.8)
[2023-08-05] MEDS: ASPIRIN 81 MG ECTAB PO SCH (08:42)
[2023-08-05] MEDS: ISOSORBIDE MONO EXTENDED REL 30 MG TABCR PO SCH (08:43)
[2023-08-05] MEDS: ATORVASTATIN 40 MG TAB PO SCH (08:43)
[2023-08-05 11:07] VITALS: BP 108/65; RESP 18; TEMP 97.9; O2SAT 97
[2023-08-05 12:31] VITALS: PULSE 64
[2023-08-05] MEDS ORDERED: LANTUS PER UNIT CHARGE SC ONE (16:30)
--- NOTE | 2023-08-06 07:57 | Discharge Summary ---
Date of Service August 05, 2023 Admission HPI Per Admitting Provider The patient is a 83-year-old female with medical history including diabetes mellitus type II dyslipidemia, CAD, bilateral carotid artery stenosis, status post CABG x 3, idiopathic polyneuropathy hypertension and moderate mitral regurgitation. She presents to the emergency department with worsening right shoulder and arm pain and swelling, after landing on her right side after a fall on steps 2 days ago. X-rays in the emergency department revealed a right humeral neck fracture, a right sixth lateral rib fracture, and laboratory workup revealed DKA with a glucose of 547 and anion gap of 15 Discharge Exam The patient is awake, alert and oriented 3, well developed and well nourished, normocephalic and atraumatic, lying in bed and in no acute distress. Heart--normal S1 and S2. No murmurs, rubs or gallops. Lungs--clear bilaterally, no respiratory distress, no accessory muscle use. Abdomen--normal bowel sounds and soft. Nontender. Nondistended Extremities-- No edema. Dermatologic-large areas of ecchymoses right arm and shoulder, and right sided rib cage. Psychiatric--normal affect. Discharge Data Allergies Allergy/AdvReac Type Severity Reaction Status Date / Time canagliflozin [From Invokana] AdvReac Severe Vaginal Unverified 07/11/23 14:45 fungal infection alendronate sodium AdvReac Unknown Night time Unverified 07/11/23 14:45 [From Fosamax] muscle cramps epinephrine AdvReac Unknown Unverified 07/11/23 14:45 exenatide AdvReac Unknown Unverified 07/11/23 14:45 insulin detemir AdvReac Unknown Unverified 07/11/23 14:45 latex AdvReac Unknown Edema Unverified 07/11/23 14:45 rosuvastatin [From Crestor] AdvReac Unknown Muscle pain Unverified 07/11/23 14:45 silicone AdvReac Unknown Unverified 07/11/23 14:45 sitagliptin [From Januvia] AdvReac Unknown Muscle pain Unverified 07/11/23 14:45 Sulfa (Sulfonamide AdvReac Unknown Hives Unverified 07/11/23 14:45 Antibiotics) vecuronium AdvReac Unknown Unverified 07/11/23 14:45 Consultations 08/02/23 20:54 Consult Orthopedic Surgery Stat ED Decision to Admit Stat Ordered Studies 08/02/23 18:27 CT abd pelvis IV con only Stat CT cervical spine wo con Stat CT head/brain wo con Stat 08/02/23 19:21 CT chest diagnostic w con Stat 08/02/23 20:54 CT shoulder RT wo con Stat Hospital Course (1) Fracture of humerus, right, closed: (2) Closed rib fracture: (3) DKA (diabetic ketoacidosis): (4) Uncontrolled type 2 diabetes mellitus with hyperglycemia: (5) CAD (coronary artery disease): (6) S/P CABG x 3: (7) Idiopathic polyneuropathy: (8) Diabetes mellitus type 2, controlled, with complications: (9) Essential hypertension with goal blood pressure less than 130/80: Plan Closed right humeral neck fracture- Status post mechanical fall Consult orthopedic surgery Pain management with Tylenol and now tramadol. Patient reports feeling safe at home, denies any abuse. will set up office of aging visit for home. continue pain control Discussed with Physical therapy, patient did well but will likely benefit from another day of recovery in the hospital prior to discharge. Not quite at baseline. Will set up home health. DKA/diabetes mellitus- Insulin drip per protocol begun in the ED and will be continued Every 4 hours laboratories: BMP, magnesium, venous blood gas LR 150 MLS per hour Oral potassium to be supplemented, due to poor IV access and concerns regarding trauma to the veins Hold repaglinide Check hemoglobin A1c Will hopefully alleviate to convert to usual glargine On 08/02 anion gap is closed and diet resumed resumed glargine. Unsure as to why patient stopped taking her medications. CAD/hypertensionhistory of CABG- Continue amlodipine, atenolol, isosorbide mononitrate Temporarily hold aspirin for possible procedure Follow routine laboratories Discharge Plan Discharge Items Patient Disposition: Home - Self-Care Reason For Visit: FALL, RIGHT HUMEURS FRACTURE, DKA Discharge Diagnosis: Humerus fracture, Diabetic ketoacidosis Activity: Per Instructions section Non-emergency contact: Primary Care Provider Call non-emergency contact if: you have any medication questions, your symptoms worsen and your pain is worsening Follow-up/Referrals: [facility] [Provider Group] (7-10 days after discharge) Griel,Luther C. III, SENIOR [employer] APPLICATION DEVELOPER [Primary Care Provider] - Diet: Carb Consistent or DM2 Addtl Attending Provider Instructions: Mrs. Vargas, you were hospitalized for a right humerus fracture and diabetic ketoacidosis. Please see instructions below. Right humerus fracture: -Please follow up with your orthopedic doctor (Dr. Franco) in 1 week following discharge. At that visit the doctor will obtain a repeat x-ray of your fracture. -Please avoid movement of your right shoulder for about 1 week. -We recommend starting physical therapy in about 2 weeks for your arm and shoulder. -Please keep your sling/belly band on at all times. -You may feel more comfortable with the head of your bed elevated. Please also use pillows under your arm for comfort. -non weight bearing of your right upper extremity -please use ice on your right arm as needed for pain and swelling. -You can do range of motion on your right fingers, hand, wrist, forearm, and elbow as tolerated. -For pain medication please use Tylenol 650mg four times daily. For breakthrough pain, please use tramadol 50mg as needed every 4 hours. The right sixth rib fracture will heal over time. The pain medicine will help with this as well. Type 2 Diabetes: -Please continue to monitor your blood sugar readings at home. -We recommend that you continue on your medications as previously prescribed by the supervisor contingents. This includes Rybelsus and metformin. For your chronic conditions (hypertension and heart disease): please continue atenolol, and isosorbide mononitrate. Amlodipine was stopped as your blood pressure was fine. During your hospitalization we did hold your aspirin but this can be resumed as an outpatient. Please follow up with your PCP in 1 week following your discharge. Pending Studies at Discharge: No Stand-Alone Forms: My [employer], Smoking Cessation Medications and DC Order Prescriptions: New tramadol 50 mg Tablet 50 mg PO Q4H PRN (Reason: pain) Qty: 30 0RF acetaminophen 325 mg Tablet 650 mg PO QID Qty: 120 0RF Continued (DME) pen needle, diabetic [BD Ultra-Fine Short Pen Needle] 31 gauge x 5/16" needle See Rx Instructions .ROUTE .MEDSUPPLY Qty: 100 3RF Rx Instructions: Once daily duloxetine 30 mg capsule,delayed release(DR/EC) 30 mg PO DAILY Qty: 90 3RF (DME) lancets [OneTouch Delica Plus Lancet] 33 gauge [facility] See Rx Instructions .ROUTE .MEDSUPPLY Qty: 100 Rx Instructions: Test blood sugar once daily (DME) OneTouch Verio test strips Strip See Rx Instructions .ROUTE .MEDSUPPLY Qty: 10 Rx Instructions: Test blood sugar twice daily atorvastatin 40 mg tablet 40 mg PO DAILY Qty: 90 3RF (DME) blood-glucose meter [OneTouch Verio Flex meter] [facility] See Rx Instructions .Route Qty: 1 0RF Rx Instructions: Test blood sugar daily isosorbide mononitrate 30 mg tablet extended release 24 hr 30 mg PO DAILY atenolol 25 mg tablet 25 mg PO DAILY metformin 1,000 mg tablet 1,000 mg PO BID cyclosporine [Restasis] 0.05 % dropperette 1 drp ophthalmic (eye) Q12H PRN (Reason: Dry Eyes) Rx Instructions: 1 drop in both eyes BID as needed [id number]-[id number]-lutein Tablet 1 tab PO DAILY nitroglycerin 0.4 mg tablet, sublingual 0.4 mg sublingual Q5M PRN (Reason: chest pain) Qty: 25 3RF Rx Instructions: do not exceed 3 doses per episode oxybutynin chloride 5 mg tablet 5 mg PO Q OTHER DAY repaglinide 1 mg tablet 1 mg PO DAILY PRN (Reason: ud) Rx Instructions: take 1 tablet by mouth as needed before HIGH CARB MEAL,RICE,PASTA aspirin 81 mg Tablet,Delayed Release (Dr/Ec) 81 mg PO DAILY insulin glargine [Lantus Solostar U-100 Insulin] 100 unit/mL (3 mL) insulin pen 12 unit subcut QPM Discontinued aspirin 81 mg tablet,delayed release (DR/EC) 162 mg PO DAILY amlodipine 5 mg tablet 5 mg PO DAILY Discharge Orders: Discharge Order (Routine); Ordered 08/05/23 Ordered By: Sukh Arenas/Other Patient Handouts: Managing Type 2 Diabetes Admission Data Admit Date/Time: 08/02/23 21:15 Attending Provider: Sukh Philippe Admit Provider: Johnny Mackenzie Primary Care Provider: Luther Funk III Other Providers: Nickolas Aguilar; Johnny Mackenzie Other Interventions: Discharge Summary Assessment (RN) Last Done: 08/05/23 12:30 Coding Diagnoses Fracture of humerus, right, closed S42.301A Closed rib fracture S22.31XA Encounter type: initial encounter Laterality: right Rib fracture type: single rib DKA (diabetic ketoacidosis) E13.10 Diabetes mellitus complication detail: without coma Diabetes mellitus type: other specified (including RICHAR) Uncontrolled type 2 diabetes mellitus with hyperglycemia E11.65 CAD (coronary artery disease) I25.10 S/P CABG x 3 Z95.1 Idiopathic polyneuropathy G60.9 Controlled type 2 diabetes mellitus with complication, with long-term current use of insulin E11.8; Z79.4 Diabetes mellitus intermediate insulin use: with intermediate use Essential hypertension with goal blood pressure less than 130/80 I10
[2023-08-06] MEDS ORDERED: LANTUS PER UNIT CHARGE SC SCH (21:00)
== END 2023-08-05 14:27 | disposition home or self-care (01) | DRG 562 ==
LOC: ED 18:08 → SUATTDRO 21:15 → 2S 21:15